=== PATIENT | female | born 1955 | race Caucasian/White ===

== ENCOUNTER 2020-09-05 20:06 | Emergency (ER) | payer MEDICARE ==
[~2020-09-05] VITALS: Ht 160 cm; Wt 50.0 kg
[2020-09-05 20:25] LABS: BASOPHILS % (AUTO) 0.3 % (0-1); EOSINOPHILS % (AUTO) 0.3 % (0-6); HEMATOCRIT 37.2 % (35.0-45.0); LYMPHOCYTES # (AUTO) 0.8 X10'3 (1.1-4.8); LYMPHOCYTES % (AUTO) 8.7 % (21-51); MEAN CORPUSCULAR HEMOGLOBIN 30.9 PG (27.0-31.0); MEAN CORPUSCULAR HGB CONC 35.1 g/dL (33.0-36.5); MEAN PLATELET VOLUME 9.1 FL (7.4-10.4); MONOCYTES # (AUTO) 0.5 X10'3 (0-0.9); MONOCYTES % (AUTO) 5.7 % (2-12); NEUTROPHILS # (AUTO) 7.8 X10'3 (1.8-7.7); PLATELET COUNT 217 X10'3 (140-440); RED BLOOD COUNT 4.22 X10'6 (4.20-5.60); RED CELL DISTRIBUTION WIDTH 12.5 % (11.5-14.5); WHITE BLOOD COUNT 9.1 X10'3 (4.5-11.0)
[2020-09-05 20:40] LABS: ALANINE AMINOTRANSFERASE 19 U/L (12-78); ALBUMIN 2.9 G/DL (3.4-5.0); ALBUMIN/GLOBULIN RATIO 0.8 (1.1-1.5); ALKALINE PHOSPHATASE 135 IU/L (46-116); ANION GAP 8 (8-16); ASPARTATE AMINO TRANSFERASE 17 U/L (10-37); BILIRUBIN,TOTAL 0.5 MG/DL (0.1-1.0); BLOOD UREA NITROGEN 11 MG/DL (7-18); BUN/CREATININE RATIO 19.3 (6.6-38.0); CALCIUM 8.6 MG/DL (8.5-10.1); CHLORIDE 101 MMOL/L (99-107); CREATININE 0.57 MG/DL (0.40-0.90); GLUCOSE 107 MG/DL (70-104); POTASSIUM 3.3 MMOL/L (3.5-5.1); SODIUM 133 MMOL/L (135-145); TOTAL CARBON DIOXIDE 23.8 MMOL/L (24-32); TOTAL PROTEIN 6.6 G/DL (6.4-8.2); eGFR > 90 ML/MIN
--- NOTE | 2020-09-05 21:03 | NUR ---
TO CT VIA [facility]
[2020-09-05 21:04] LABS: CLARITY,URINE CLEAR (Clear); COLOR,URINE YELLOW (Yellow); GLUCOSE, URINE NEGATIVE (Neg); KETONES,URINE NEGATIVE (Neg); LEUKOCYTE ESTERASE ,URINE NEGATIVE (Neg); NITRITES, URINE NEGATIVE (Neg); OCCULT BLOOD,URINE MODERATE (Neg); PH,URINE 6.5 (4.8-8.0); PROTEIN,URINE NEGATIVE (Neg)
[2020-09-05 21:10] LABS: UA COLLECTION TYPE CLN CATCH MIDSTREAM
[2020-09-05 21:28] LABS: MUCUS STRANDS FEW /LPF (Neg); SQUAMOUS EPITHELIAL CELL,UR FEW /LPF (FEW)
[2020-09-05 21:29] LABS: BACTERIA,URINE FEW /HPF (Neg); CAL OXALATE CRYSTALS 2+ /HPF (NEGATIVE); WBC,URINE 0-4 /HPF (0-4)
[2020-09-05 22:51] VITALS: BP 151/80
--- NOTE | 2020-09-05 22:59 | NUR ---
SPOKE WITH FAMILY WHO EXPRESSED CONCERNS THAT PT IS BEING DISCHARGED. THEY ARE UPSET THAT WE HAVE NOT CONTACTED HER "PREVIOUS PHYSICIANS OR OTHER HOSPITALS" REGARDING HER ISSUES. THEY STATE THAT EVERYTIME SHE IS CHECKED OUT NO ONE CAN FIND ANYTHING WRONG BUT SHE HAS TO GO BACK WITH OTHER ISSUES THE NEXT DAY. I ADVISED THE FAMILY THAT AT THIS TIME THERE IS NO INDICATION TO KEEP HER IN THE HOSPITAL AND THAT SHOULD ANYTHING CHANGE ONCE SHE IS HOME THEY ARE MORE THAN WELCOME TO BRING HER BACK IN FOR A RE-EVAL.
== END 2020-09-05 23:36 | disposition home or self-care (01) ==
LOC: EDBD 20:06 → ER 20:06
DX: R10.84 Generalized abdominal pain (principal); R30.0 Dysuria; R53.1 Weakness; E11.9 Type 2 diabetes mellitus without complications; G89.29 Other chronic pain; Z86.73 Personal history of transient ischemic attack (TIA), and cerebral infarction without residual deficits; Z86.69 Personal history of other diseases of the nervous system and sense organs
CPT/HCPCS: 36415; 74176; 80053; 81001; 83605; 84145; 85025; 87040; 99284

== ENCOUNTER 2021-02-13 14:02 | Inpatient (IN) | payer MEDICARE, OTHER ==
[~2021-02-13] VITALS: Ht 160 cm; Wt 58.0 kg
[2021-02-13 15:26] LABS: BASOPHILS % (AUTO) 0.3 % (0-1); EOSINOPHILS # (AUTO) 0.1 X10'3 (0-0.9); EOSINOPHILS % (AUTO) 1.8 % (0-6); HEMATOCRIT 36.5 % (35.0-45.0); HEMOGLOBIN 12.1 g/dl (12.0-16.0); LYMPHOCYTES # (AUTO) 1.1 X10'3 (1.1-4.8); LYMPHOCYTES % (AUTO) 25.1 % (21-51); MEAN CORPUSCULAR HEMOGLOBIN 29.5 PG (27.0-31.0); MEAN CORPUSCULAR HGB CONC 33.2 g/dL (33.0-36.5); MEAN CORPUSCULAR VOLUME 88.7 FL (78-98); MEAN PLATELET VOLUME 11.2 FL (7.4-10.4); MONOCYTES # (AUTO) 0.5 X10'3 (0-0.9); MONOCYTES % (AUTO) 11.5 % (2-12); NEUTROPHILS # (AUTO) 2.6 X10'3 (1.8-7.7); NEUTROPHILS % (AUTO) 61.3 % (42-75); PLATELET COUNT 138 X10'3 (140-440); RED BLOOD COUNT 4.12 X10'6 (4.20-5.60); RED CELL DISTRIBUTION WIDTH 13.1 % (11.5-14.5); WHITE BLOOD COUNT 4.3 X10'3 (4.5-11.0)
[2021-02-13 15:39] LABS: CHLORIDE 108 MMOL/L (99-107); POTASSIUM 3.9 MMOL/L (3.5-5.1); SODIUM 143 MMOL/L (135-145)
[2021-02-13 15:56] LABS: ALBUMIN 3.2 G/DL (3.4-5.0); ALBUMIN/GLOBULIN RATIO 0.9 (1.1-1.5); ALKALINE PHOSPHATASE 124 IU/L (46-116); ANION GAP 12 (8-16); ASPARTATE AMINO TRANSFERASE 20 U/L (10-37); BILIRUBIN,TOTAL 0.7 MG/DL (0.1-1.0); BLOOD UREA NITROGEN 13 MG/DL (7-18); BUN/CREATININE RATIO 25.5 (6.6-38.0); CALCIUM 8.5 MG/DL (8.5-10.1); CREATININE 0.51 MG/DL (0.40-0.90); GLUCOSE 161 MG/DL (70-104); TOTAL CARBON DIOXIDE 22.9 MMOL/L (24-32); TOTAL PROTEIN 6.6 G/DL (6.4-8.2); eGFR > 90 ML/MIN
[2021-02-13 17:55] LABS: ALANINE AMINOTRANSFERASE 22 U/L (12-78)
--- NOTE | 2021-02-13 22:05 | NUR ---
pt ambulated to bathroom using walker- oxygen saturation dropped to 85%. clean catch urine specimen collected and sent. pt now resting in stretcher, even and unlabored respirations
[2021-02-13 22:42] LABS: D-DIMER 2.84 MG/L FEU (0-0.50)
[2021-02-13] MEDS ORDERED: iohexol 350MG/ML 100ml bottle IV ONE (23:03)
[2021-02-13] MEDS ORDERED: furosemide 10 MG/1 ML 10ml inj IV ONE (23:20)
--- NOTE | 2021-02-14 00:31 | NUR ---
PT ASSISTED TO BATHROOM WITH WHEELCHAIR- TOLERATED WELL, MAINTAINED ON 2L OXYGEN.
[2021-02-14] MEDS ORDERED: magnesium hydroxide 30ml (MOM) UD suspension PO PRN (01:20)
[2021-02-14] MEDS ORDERED: ondansetron/PF 4mg/2ml inj IV PRN (01:20)
[2021-02-14] MEDS ORDERED: acetaminophen 325mg tablet PO PRN (01:20)
[2021-02-14] MEDS ORDERED: mag hydrox/Alum hydrox/simeth 30ml oral suspension PO PRN (01:20)
[2021-02-14] MEDS ORDERED: potassium Cl 40MEQ/1/2NS 520ml 520 ML IV PRN ×2 (01:20)
[2021-02-14] MEDS ORDERED: potassium Cl 20 mEq SR tablet PO PRN (01:20)
[2021-02-14] MEDS ORDERED: HYDROcodone/acetaminophen 10/325mg tab PO ONE (02:20)
[2021-02-14] MEDS ORDERED: CYAN100T9 PO (02:24)
[2021-02-14] MEDS ORDERED: MORP-92 PO (02:24)
[2021-02-14] MEDS ORDERED: FLUD0.1T PO (02:24)
[2021-02-14] MEDS ORDERED: INSU100V9 SQ (02:24)
[2021-02-14] MEDS ORDERED: PREG100C PO (02:24)
[2021-02-14] MEDS ORDERED: KEP500T PO (02:24)
[2021-02-14] MEDS ORDERED: PANT-47 PO (02:24)
[2021-02-14] MEDS ORDERED: TIZA4CAP PO (02:24)
[2021-02-14] MEDS ORDERED: GABA300C PO (02:24)
[2021-02-14] MEDS ORDERED: ASPI-100 PO (02:24)
[2021-02-14] MEDS ORDERED: POLY17PO59 PO (02:24)
[2021-02-14] MEDS ORDERED: DULO60CA65 PO (02:24)
[2021-02-14] MEDS ORDERED: HYDR-3972 PO (02:24)
[2021-02-14] MEDS ORDERED: MELO15TA13 PO (02:24)
--- NOTE | 2021-02-14 02:55 | NUR ---
REPORT GIVEN TO ANGEL PRATT FOR PATIENT ADMISSION TO FLOOR. PT JUST ASSISTED TO BEDSIDE COMMODE- TOLERATED WELL. PT WAS ALSO GIVEN DOSE OF NORCO- SWALLOWED WITHOUT DIFFICULTY.
[2021-02-14] MEDS: pregabalin 75mg capsule PO SCH ×3 (03:46→20:21)
[2021-02-14] MEDS: gabapentin 300mg capsule PO SCH ×3 (03:46→20:21)
[2021-02-14] MEDS: pregabalin 25mg capsule PO SCH ×3 (03:46→20:21)
[2021-02-14] MEDS: tizanidine 4mg tablet PO SCH ×2 (03:47→20:21)
[2021-02-14 04:00] VITALS: BP 179/84
[2021-02-14 04:51] LABS: HEMOGLOBIN A1C 5.6 % (4.5-6.2)
--- NOTE | 2021-02-14 06:10 | NUR ---
Patient in room [facility] 356. I have received report from SANTA Joyce and had the opportunity to ask questions and assume patient care.
--- NOTE | 2021-02-14 06:27 | NUR ---
Problems reprioritized. Patient report given, questions answered & plan of care reviewed with Gracie RN.
[2021-02-14 06:30] VITALS: BP 178/79
[2021-02-14 07:16] LABS: PARTIAL THROMBOPLASTIN TIME 30 SECONDS (22-32)
[2021-02-14 07:30] LABS: ALBUMIN 3.1 G/DL (3.4-5.0); ANION GAP 14 (8-16); BLOOD UREA NITROGEN 11 MG/DL (7-18); BUN/CREATININE RATIO 23.9 (6.6-38.0); CALCIUM 8.8 MG/DL (8.5-10.1); CHLORIDE 105 MMOL/L (99-107); CREATININE 0.46 MG/DL (0.40-0.90); GLUCOSE 120 MG/DL (70-104); POTASSIUM 3.5 MMOL/L (3.5-5.1); SODIUM 143 MMOL/L (135-145); TOTAL CARBON DIOXIDE 24.3 MMOL/L (24-32); eGFR > 90 ML/MIN
[2021-02-14] MEDS: polyethylene glycol 3350 17gm powd pack PO SCH (07:44)
[2021-02-14] MEDS: aspirin 325mg tablet, delayed-release (Ecotrin) PO SCH (07:45)
[2021-02-14] MEDS: pantoprazole 40mg Tablet.DR PO SCH (07:47)
[2021-02-14] MEDS: levetiracetam 250mg tablet PO SCH ×2 (07:47→20:21)
[2021-02-14] MEDS: duloxetine 30mg CAPSULE.DR PO SCH (07:47)
[2021-02-14] MEDS: morphine ER 30mg tablet PO SCH ×2 (07:48→20:21)
[2021-02-14] MEDS: K and/or MAG REPLACEMENT MC SCH ×2 (07:48→20:00)
[2021-02-14] MEDS ORDERED: non-formulary drug (Pregabalin (Lyrica) 1 CAP) PO SCH (08:00)
[2021-02-14] MEDS ORDERED: fludrocortisone acetate 0.1mg tablet PO SCH (08:00)
[2021-02-14] MEDS ORDERED: morphine ER 15mg tablet PO SCH (08:00)
[2021-02-14] MEDS: furosemide 40mg/4ml inj IV SCH ×2 (08:46→20:24)
[2021-02-14 09:01] LABS: BASOPHILS % (AUTO) 0.3 % (0-1); EOSINOPHILS # (AUTO) 0.1 X10'3 (0-0.9); EOSINOPHILS % (AUTO) 2.5 % (0-6); HEMATOCRIT 36.2 % (35.0-45.0); HEMOGLOBIN 12.1 g/dl (12.0-16.0); LYMPHOCYTES # (AUTO) 0.9 X10'3 (1.1-4.8); LYMPHOCYTES % (AUTO) 23.7 % (21-51); MEAN CORPUSCULAR HEMOGLOBIN 29.3 PG (27.0-31.0); MEAN CORPUSCULAR HGB CONC 33.4 g/dL (33.0-36.5); MEAN CORPUSCULAR VOLUME 87.7 FL (78-98); MEAN PLATELET VOLUME 11.1 FL (7.4-10.4); MONOCYTES # (AUTO) 0.5 X10'3 (0-0.9); NEUTROPHILS # (AUTO) 2.5 X10'3 (1.8-7.7); NEUTROPHILS % (AUTO) 61.5 % (42-75); PLATELET COUNT 134 X10'3 (140-440); RED BLOOD COUNT 4.13 X10'6 (4.20-5.60); RED CELL DISTRIBUTION WIDTH 12.9 % (11.5-14.5)
--- NOTE | 2021-02-14 09:19 | NUR ---
DM consult: Pt with A1c 5.6%, DM education not warranted at this time. Will continue to follow. Addendum: 02/14/21 at [address] Amended: Links added.
[2021-02-14 11:00] VITALS: BP 138/65
[2021-02-14] MEDS: HYDROcodone/acetaminophen 10/325mg tab PO SCH ×2 (12:11→23:32)
[2021-02-14 13:30] VITALS: BP 147/61
[2021-02-14 13:47] VITALS: BP 97/45
[2021-02-14] MEDS: insulin glargine (Lantus) pen - multi-dose SQ SCH (13:58)
[2021-02-14 14:34] LABS: BFSOURCE RIGHT PLEURAL FLD; PLEURAL FLUID PH 7.475 (7.63-7.65)
[2021-02-14 14:42] LABS: GLUCOSE,BODY FLUID 155 MG/DL; LDH,BODY FLUID 73 U/L; TOTAL PROTEIN,BODY FLUID 2.1 G/DL
[2021-02-14 14:47] LABS: BF RBC COUNT 399 /CU MM; BF WBC COUNT 500 /CU MM (0-1000); BFAPPEAR HAZY; BFCOLOR YELLOW; BFVOLUME 49 ML
[2021-02-14 14:48] LABS: BF MESOTHELIAL CELLS FEW; LYMPHOCYTES,BODY FLUID 76 %; MONOCYTES,BODY FLUID 22 %; NEUTROPHILS,BODY FLUID 2 %
[2021-02-14 17:59] LABS: ABG BASE EXCESS 3.6 mmol/L (-2.0-2.0); ABG HCO3 28.2 mmol/L (22.0-26.0); ABG OXYGEN SATURATION 93.8 % (94-97); ABG PCO2 (T) 42.7 mmHg (32.0-45.0); ABG PO2 (T) 71.3 mmHg (75.0-100.0); ALLEN'S TEST POSITIVE; FCOHb 1.4 % (0.0-3.9); FO2Hb 92.5 % (94-97); TOTAL HEMOGLOBIN 11.6 G/dl (12.0-16.0)
[2021-02-14 18:00] VITALS: BP 146/70
--- NOTE | 2021-02-14 18:30 | NUR ---
Patient in room [facility] 356. I have received report from Gracie PRATT and had the opportunity to ask questions and assume patient care.
--- NOTE | 2021-02-14 18:30 | NUR ---
Problems reprioritized. Patient report given, questions answered & plan of care reviewed with SANTA Joyce.
[2021-02-14] MEDS ORDERED: MELOXICAM 15 MG PO SCH (21:00)
[2021-02-15] VITALS: BP 132/62
--- NOTE | 2021-02-15 06:25 | NUR ---
Patient in room [facility] 356. I have received report from SANTA Joyce and had the opportunity to ask questions and assume patient care.
--- NOTE | 2021-02-15 06:38 | NUR ---
Problems reprioritized. Patient report given, questions answered & plan of care reviewed with Gracie RN.
[2021-02-15 06:54] LABS: BASOPHILS % (AUTO) 0.4 % (0-1); EOSINOPHILS # (AUTO) 0.1 X10'3 (0-0.9); EOSINOPHILS % (AUTO) 3.3 % (0-6); HEMATOCRIT 33.9 % (35.0-45.0); HEMOGLOBIN 11.7 g/dl (12.0-16.0); LYMPHOCYTES # (AUTO) 1.2 X10'3 (1.1-4.8); LYMPHOCYTES % (AUTO) 30.9 % (21-51); MEAN CORPUSCULAR HEMOGLOBIN 29.6 PG (27.0-31.0); MEAN CORPUSCULAR HGB CONC 34.5 g/dL (33.0-36.5); MEAN CORPUSCULAR VOLUME 85.7 FL (78-98); MEAN PLATELET VOLUME 11.2 FL (7.4-10.4); MONOCYTES # (AUTO) 0.5 X10'3 (0-0.9); MONOCYTES % (AUTO) 13.5 % (2-12); NEUTROPHILS % (AUTO) 51.9 % (42-75); PLATELET COUNT 140 X10'3 (140-440); RED BLOOD COUNT 3.95 X10'6 (4.20-5.60); RED CELL DISTRIBUTION WIDTH 12.7 % (11.5-14.5); WHITE BLOOD COUNT 3.9 X10'3 (4.5-11.0)
[2021-02-15 06:56] LABS: ALANINE AMINOTRANSFERASE 17 U/L (12-78); ALBUMIN 2.8 G/DL (3.4-5.0); ALBUMIN/GLOBULIN RATIO 0.9 (1.1-1.5); ALKALINE PHOSPHATASE 110 IU/L (46-116); ANION GAP 11 (8-16); ASPARTATE AMINO TRANSFERASE 15 U/L (10-37); BILIRUBIN,TOTAL 0.6 MG/DL (0.1-1.0); BLOOD UREA NITROGEN 12 MG/DL (7-18); CALCIUM 8.3 MG/DL (8.5-10.1); CHLORIDE 106 MMOL/L (99-107); CREATININE 0.48 MG/DL (0.40-0.90); GLUCOSE 119 MG/DL (70-104); SODIUM 145 MMOL/L (135-145); TOTAL CARBON DIOXIDE 28.4 MMOL/L (24-32); eGFR > 90 ML/MIN
[2021-02-15 07:00] VITALS: BP 151/64
[2021-02-15] MEDS: K and/or MAG REPLACEMENT MC SCH (07:14)
[2021-02-15 07:19] LABS: LARGE PLATELETS FEW; MICROCYTOSIS 1+; PLATELET ESTIMATE DECREASED
[2021-02-15] MEDS ORDERED: lisinopril 10 MG tablet PO SCH (08:00)
[2021-02-15] MEDS: morphine ER 30mg tablet PO SCH (09:17)
[2021-02-15] MEDS: gabapentin 300mg capsule PO SCH ×2 (09:17→12:25)
[2021-02-15] MEDS: aspirin 325mg tablet, delayed-release (Ecotrin) PO SCH (09:17)
[2021-02-15] MEDS: duloxetine 30mg CAPSULE.DR PO SCH (09:17)
[2021-02-15] MEDS: pantoprazole 40mg Tablet.DR PO SCH (09:18)
[2021-02-15] MEDS: levetiracetam 250mg tablet PO SCH (09:18)
[2021-02-15] MEDS: pregabalin 25mg capsule PO SCH ×2 (09:18→12:25)
[2021-02-15] MEDS: furosemide 40mg/4ml inj IV SCH (09:18)
[2021-02-15] MEDS: tizanidine 4mg tablet PO SCH (09:18)
[2021-02-15] MEDS: pregabalin 75mg capsule PO SCH ×2 (09:18→12:25)
[2021-02-15] MEDS: polyethylene glycol 3350 17gm powd pack PO SCH (09:19)
[2021-02-15] MEDS: potassium Cl 20 mEq SR tablet PO PRN ×2 (09:24→14:40)
[2021-02-15 11:00] VITALS: BP 126/49
[2021-02-15] MEDS: HYDROcodone/acetaminophen 10/325mg tab PO SCH (12:26)
[2021-02-15] MEDS ORDERED: LISI10TA27 PO (14:18)
[2021-02-15] MEDS ORDERED: FURO20TA4 PO (14:18)
[2021-02-15] MEDS: insulin glargine (Lantus) pen - multi-dose SQ SCH (14:24)
[2021-02-15] MEDS ORDERED: POTA20TA10 PO (15:17)
--- NOTE | 2021-02-15 16:25 | NUR ---
DC inst provided to pt & pt's daughter. IV DC'd, tip intact. All belongings sent w/pt. WC to vehicle.
--- NOTE | 2021-02-18 15:14 | NUR ---
CASE MANAGEMENT DISCHARGE FOLLOW UP: Spoke with pt via telephone. Reports that she is doing okay, having some nausea that started today; denies CP, SOB, edema, dizziness, emesis/diarrhea. Verbalizes understanding of s/sx requiring further evaluation/emergent assistance. Verbalizes understanding of medications, saw her PCP today who instructed her to continue taking Florinef, Lantus, and meloxicam in addition to new medications. She says that PCP did not send referral yet to industrial machine operator, but that she will. States no further questions/concerns at this time.
== END 2021-02-15 16:34 | disposition home or self-care (01) | DRG 293 ==
LOC: ER 14:03 → ED HOLD 02-14 01:18 → SUR 3N 02-14 03:14
PROVIDERS: ADMIT Internal Medicine; ATTEND Internal Medicine
PROC: B32T1ZZ Computerized Tomography (CT Scan) of Left Pulmonary Artery using Low Osmolar Contrast (ICD-10-PCS; principal; 2021-02-13)
PROC: B3201ZZ Computerized Tomography (CT Scan) of Thoracic Aorta using Low Osmolar Contrast (ICD-10-PCS; 2021-02-13)
PROC: B32S1ZZ Computerized Tomography (CT Scan) of Right Pulmonary Artery using Low Osmolar Contrast (ICD-10-PCS; 2021-02-13)
PROC: 0W9B3ZZ Drainage of Left Pleural Cavity, Percutaneous Approach (ICD-10-PCS; 2021-02-14)
PROC: 0W993ZZ Drainage of Right Pleural Cavity, Percutaneous Approach (ICD-10-PCS; 2021-02-14)
DX: I50.31 Acute diastolic (congestive) heart failure (principal); D69.6 Thrombocytopenia, unspecified; E11.41 Type 2 diabetes mellitus with diabetic mononeuropathy; E11.43 Type 2 diabetes mellitus with diabetic autonomic (poly)neuropathy; G60.9 Hereditary and idiopathic neuropathy, unspecified; N28.9 Disorder of kidney and ureter, unspecified; R29.6 Repeated falls; G89.4 Chronic pain syndrome; Z86.73 Personal history of transient ischemic attack (TIA), and cerebral infarction without residual deficits; Z90.49 Acquired absence of other specified parts of digestive tract; Z87.891 Personal history of nicotine dependence; Z88.5 Allergy status to narcotic agent; Z79.899 Other long term (current) drug therapy
CPT/HCPCS: 32555; 36415; 36600; 71045; 71046; 71275; 80048; 80053; 82803; 82945; 82948; 83036; 83615; 83880; 83986; 84157; 84460; 84484; 85008; 85018; 85025; 85379; 85610; 85730; 87070; 87081; 89051; 93005; 93306; 99285; G0378; J1815; J1940; Q9967

== ENCOUNTER 2022-11-21 17:18 | Emergency (ER) | payer MEDICARE, OTHER ==
[~2022-11-21] VITALS: Ht 160 cm; Wt 81.8 kg
[~2022-11-21 17:18] MED LIST: ASPI-100 PO; CYAN100T9 PO; DULO60CA65 PO; FURO20TA4 PO; GABA300C PO; HYDR-3972 PO; KEP500T PO; LISI10TA27 PO; MORP-92 PO; PANT-47 PO; POLY17PO59 PO; POTA-197 PO; PREG100C PO; TIZA4CAP PO
[2022-11-21 22:50] LABS: BASOPHILS % (AUTO) 0.2 % (0-1); EOSINOPHILS # (AUTO) 0.2 X10'3 (0-0.9); EOSINOPHILS % (AUTO) 2.6 % (0-6); HEMATOCRIT 34.8 % (35.0-45.0); HEMOGLOBIN 11.4 g/dl (12.0-16.0); LYMPHOCYTES # (AUTO) 1.7 X10'3 (1.1-4.8); LYMPHOCYTES % (AUTO) 20.1 % (21-51); MEAN CORPUSCULAR HEMOGLOBIN 28.2 PG (27.0-31.0); MEAN CORPUSCULAR HGB CONC 32.6 g/dL (33.0-36.5); MEAN CORPUSCULAR VOLUME 86.6 FL (78-98); MEAN PLATELET VOLUME 10.4 FL (7.4-10.4); MONOCYTES # (AUTO) 0.9 X10'3 (0-0.9); MONOCYTES % (AUTO) 11.2 % (2-12); NEUTROPHILS # (AUTO) 5.6 X10'3 (1.8-7.7); NEUTROPHILS % (AUTO) 65.9 % (42-75); PLATELET COUNT 193 X10'3 (140-440); RED BLOOD COUNT 4.02 X10'6 (4.20-5.60); RED CELL DISTRIBUTION WIDTH 13.8 % (11.5-14.5); WHITE BLOOD COUNT 8.4 X10'3 (4.5-11.0)
[2022-11-21 23:03] LABS: ALANINE AMINOTRANSFERASE 23 U/L (12-78); ALBUMIN 3.8 G/DL (3.4-5.0); ALBUMIN/GLOBULIN RATIO 0.8 (1.1-1.5); ALKALINE PHOSPHATASE 105 IU/L (46-116); ANION GAP 10 (8-16); ASPARTATE AMINO TRANSFERASE 21 U/L (10-37); BILIRUBIN,TOTAL 0.4 MG/DL (0.1-1.0); BLOOD UREA NITROGEN 21 MG/DL (7-18); BUN/CREATININE RATIO 23.9 (6.6-38.0); CALCIUM 9.5 MG/DL (8.5-10.1); CHLORIDE 104 MMOL/L (99-107); CREATININE 0.88 MG/DL (0.40-0.90); GLUCOSE 127 MG/DL (70-104); POTASSIUM 4.4 MMOL/L (3.5-5.1); SODIUM 138 MMOL/L (135-145); TOTAL CARBON DIOXIDE 24.1 MMOL/L (24-32); TOTAL PROTEIN 8.6 G/DL (6.4-8.2); eGFR 64 ML/MIN
[2022-11-21] MEDS ORDERED: vancomycin/NS 1 GM ADD-VANTAGE 250 ML IV ONE (23:50)
[2022-11-22 00:17] LABS: CLARITY,URINE CLEAR (Clear); COLOR,URINE YELLOW (Yellow); GLUCOSE, URINE NEGATIVE (Neg); KETONES,URINE NEGATIVE (Neg); LEUKOCYTE ESTERASE ,URINE TRACE (Neg); NITRITES, URINE NEGATIVE (Neg); OCCULT BLOOD,URINE NEGATIVE (Neg); PH,URINE 5.5 (4.8-8.0); PROTEIN,URINE NEGATIVE (Neg); UA COLLECTION TYPE NON-SPECIFIED; UROBILINOGEN,URINE 0.2 E.U/dL (0.2-1.0)
[2022-11-22 00:24] LABS: HYALINE CASTS >30 /LPF (NEGATIVE)
[2022-11-22] MEDS ORDERED: HYDROcodone/acetaminophen 10/325mg tab PO ONE (00:25)
[2022-11-22 00:30] LABS: BACTERIA,URINE NONE SEEN /HPF (Neg); MUCUS STRANDS MANY /LPF (Neg); RBC,URINE NONE SEEN /HPF (0-2); SQUAMOUS EPITHELIAL CELL,UR FEW /LPF (FEW)
[2022-11-22] MEDS ORDERED: DOXY100C76 PO ×2 (01:20→01:48)
[2022-11-22 01:27] VITALS: BP 113/68
== END 2022-11-22 03:04 | disposition home or self-care (01) ==
LOC: ER 17:19
DX: L03.116 Cellulitis of left lower limb (principal); I11.0 Hypertensive heart disease with heart failure; I50.9 Heart failure, unspecified; K21.9 Gastro-esophageal reflux disease without esophagitis; E11.9 Type 2 diabetes mellitus without complications; G89.29 Other chronic pain; Z86.2 Personal history of diseases of the blood and blood-forming organs and certain disorders involving the immune mechanism; Z88.5 Allergy status to narcotic agent; Z79.899 Other long term (current) drug therapy
CPT/HCPCS: 36415; 71045; 73630; 80053; 81001; 83605; 85025; 87040; 87088; 96365; 96366; 99284; J3370

== ENCOUNTER 2023-01-22 11:48 | Inpatient (IN) | payer MEDICARE, OTHER ==
[~2023-01-22] VITALS: Ht 160 cm; Wt 72.1 kg
[2023-01-22] MEDS ORDERED: ondansetron/PF 4mg/2ml inj IV ONE (12:40)
[2023-01-22] MEDS ORDERED: normal saline 1000ML IV soln IVB ONE (12:40)
[2023-01-22 12:59] LABS: BASOPHILS % (AUTO) 0.5 % (0-1); EOSINOPHILS # (AUTO) 0.3 X10'3 (0-0.9); EOSINOPHILS % (AUTO) 3.6 % (0-6); HEMATOCRIT 29.4 % (35.0-45.0); HEMOGLOBIN 9.6 g/dl (12.0-16.0); LYMPHOCYTES # (AUTO) 0.9 X10'3 (1.1-4.8); LYMPHOCYTES % (AUTO) 11.5 % (21-51); MEAN CORPUSCULAR HEMOGLOBIN 27.9 PG (27.0-31.0); MEAN CORPUSCULAR HGB CONC 32.7 g/dL (33.0-36.5); MEAN CORPUSCULAR VOLUME 85.2 FL (78-98); MEAN PLATELET VOLUME 9.7 FL (7.4-10.4); MONOCYTES # (AUTO) 0.6 X10'3 (0-0.9); MONOCYTES % (AUTO) 8.4 % (2-12); NEUTROPHILS # (AUTO) 5.7 X10'3 (1.8-7.7); PLATELET COUNT 236 X10'3 (140-440); RED BLOOD COUNT 3.46 X10'6 (4.20-5.60); RED CELL DISTRIBUTION WIDTH 17.5 % (11.5-14.5); WHITE BLOOD COUNT 7.5 X10'3 (4.5-11.0)
[2023-01-22] MEDS: morphine 4 MG/ML inj SYRINge IV PRN ×2 (13:06→15:36)
[2023-01-22 13:15] LABS: ALANINE AMINOTRANSFERASE 15 U/L (12-78); ALBUMIN 2.9 G/DL (3.4-5.0); ALBUMIN/GLOBULIN RATIO 0.6 (1.1-1.5); ALKALINE PHOSPHATASE 123 IU/L (46-116); ANION GAP 9 (8-16); ASPARTATE AMINO TRANSFERASE 18 U/L (10-37); BILIRUBIN,TOTAL 0.3 MG/DL (0.1-1.0); BLOOD UREA NITROGEN 15 MG/DL (7-18); BUN/CREATININE RATIO 19.2 (10.0-20.0); CALCIUM 9.5 MG/DL (8.5-10.1); CHLORIDE 104 MMOL/L (99-107); CREATININE 0.78 MG/DL (0.40-0.90); GLUCOSE 208 MG/DL (70-104); LIPASE < 50 U/L (73-393); POTASSIUM 4.7 MMOL/L (3.5-5.1); SODIUM 137 MMOL/L (135-145); TOTAL CARBON DIOXIDE 23.9 MMOL/L (24-32); TOTAL PROTEIN 7.7 G/DL (6.4-8.2); eGFR 73 ML/MIN
[2023-01-22] MEDS ORDERED: HYDROcodone/acetaminophen 10/325mg tab PO ONE (14:20)
[2023-01-22] MEDS ORDERED: HYDR-3973 PO (14:42)
[2023-01-22] MEDS ORDERED: morphine 4 MG/ML inj SYRINge IV ONE ×2 (16:55→19:35)
[2023-01-22 22:11] LABS: CLARITY,URINE CLEAR (Clear); COLOR,URINE YELLOW (Yellow); GLUCOSE, URINE NEGATIVE (Neg); KETONES,URINE NEGATIVE (Neg); LEUKOCYTE ESTERASE ,URINE SMALL (Neg); NITRITES, URINE NEGATIVE (Neg); OCCULT BLOOD,URINE NEGATIVE (Neg); PROTEIN,URINE NEGATIVE (Neg); UROBILINOGEN,URINE 0.2 E.U/dL (0.2-1.0)
[2023-01-22 22:33] LABS: UA COLLECTION TYPE CLN CATCH MIDSTREAM
[2023-01-22 22:34] LABS: BACTERIA,URINE FEW /HPF (Neg); RBC,URINE NONE SEEN /HPF (0-2); SQUAMOUS EPITHELIAL CELL,UR FEW /LPF (FEW); TRANSITIONAL EPI CELLS,URINE FEW /HPF; WBC CLUMPS,URINE MODERATE /HPF (NEGATIVE)
[2023-01-22 23:01] LABS: C-REACTIVE PROTEIN 2.61 MG/DL (0.0-0.5)
[2023-01-22] MEDS ORDERED: HYDROmorphone 1 mg/ml syringe IV ONE (23:55)
[2023-01-22] MEDS ORDERED: vancomycin/NS 1 GM ADD-VANTAGE 250 ML IV ONE (23:55)
[2023-01-22] MEDS ORDERED: piperacillin/tazo 3.375gm/50ml 50 ML IV ONE (23:55)
[2023-01-23] MEDS ORDERED: acetaminophen 325mg tablet PO PRN ×2 (01:15)
[2023-01-23] MEDS ORDERED: mag hydrox/Alum hydrox/simeth 30ml oral suspension PO PRN (01:15)
[2023-01-23] MEDS ORDERED: acetaminophen 650mg rectal suppository RC PRN (01:15)
[2023-01-23] MEDS ORDERED: diphenhydrAMINE 25mg capsule PO PRN (01:15)
[2023-01-23] MEDS ORDERED: ondansetron/PF 4mg/2ml inj IV PRN (01:15)
[2023-01-23] MEDS ORDERED: bisacodyl 10mg suppository rectal RC PRN (01:15)
[2023-01-23] MEDS ORDERED: HYDROcodone/acetaminophen 5mg/325mg tablet PO PRN ×2 (01:15→17:40)
[2023-01-23] MEDS ORDERED: ondansetron 4mg rapidly disintigrating tab PO PRN (01:15)
[2023-01-23] MEDS ORDERED: diphenhydrAMINE 50 mg/ml inj IV PRN (01:15)
[2023-01-23] MEDS ORDERED: DEXTROSE 15 GM of carb/4 tabs (each vial/BOTTLE has 4 tablets) PO PRN ×2 (01:25)
[2023-01-23] MEDS ORDERED: insulin Lispro (HumaLOG) vial - multi-dose SQ SCH (01:25)
[2023-01-23] MEDS ORDERED: dextrose 50%-water 50ml dispensing syringe IV PRN ×2 (01:25)
[2023-01-23] MEDS ORDERED: glucagon, human recombinant 1mg kit SUBCUT PRN (01:25)
[2023-01-23] MEDS ORDERED: MESSAGE TO PHARMACY PO ONE (01:25)
[2023-01-23] MEDS ORDERED: piperacillin/tazo 3.375gm/50ml 50 ML IV STA (02:41)
[2023-01-23] MEDS: HYDROmorphone inj. 0.5 MG/0.5 ML DISP.SYRIN IV PRN ×5 (02:49→22:09)
[2023-01-23 03:00] VITALS: BP 126/86
[2023-01-23 03:09] LABS: MAGNESIUM 1.5 MG/DL (1.5-2.4); PHOSPHORUS 4.3 MG/DL (2.3-4.5)
[2023-01-23 03:33] LABS: HEMOGLOBIN A1C 7.2 % (4.5-6.2)
[2023-01-23] MEDS: normal saline 1000ml 1,000 ML IV SCH ×3 (03:48→20:59)
--- NOTE | 2023-01-23 04:20 | NUR ---
Pt arrived to PCU in no acute distress via gurney. Assisted in transferring to bed. Oriented to bed, room, surroundings, and POC. Appears anxious about getting needs met. Education and reassurance offered regarding pt's concerns. Assisted to BSC to void w/1 person, 2 RN skin ckeck completed, and nasal swab obtained and sent.
[2023-01-23 04:21] LABS: APTT 28 SECONDS (22-32); D-DIMER 1.88 MG/L FEU (0-0.50)
[2023-01-23 05:53] LABS: HIV ANTIBODY 1&2 RAPID NON-REACTIVE (Neg)
--- NOTE | 2023-01-23 06:39 | NUR ---
Patient in room PCU 3009. I have received report from Helena PRATT and had the opportunity to ask questions and assume patient care.
[2023-01-23] MEDS: docusate sod 100mg capsule PO SCH ×2 (07:14→20:00)
--- NOTE | 2023-01-23 07:14 | NUR ---
Problems reprioritized. Patient report given, questions answered & plan of care reviewed with Jamie RN.
[2023-01-23] MEDS: heparin, porcine 5000 units/ml vial SQ SCH ×2 (07:20→20:54)
[2023-01-23 07:25] VITALS: BP 133/58
[2023-01-23] MEDS ORDERED: tizanidine 4mg tablet PO SCH (08:00)
[2023-01-23] MEDS ORDERED: iohexol 300mg/ml 100ml inj. ONE (10:26)
[2023-01-23] MEDS: HYDROcodone/acetaminophen 10/325mg tab PO PRN ×2 (10:43→20:53)
[2023-01-23] MEDS ORDERED: piperacillin/tazo 3.375gm/50ml 50 ML IV SCH (11:00)
[2023-01-23] MEDS ORDERED: GABA600T13 PO (11:03)
[2023-01-23] MEDS ORDERED: FURO-150 PO (11:03)
[2023-01-23] MEDS ORDERED: LISI10TA27 PO (11:03)
[2023-01-23] MEDS ORDERED: HYDR-3964 PO (11:03)
[2023-01-23] MEDS ORDERED: POTA-366 PO (11:07)
[2023-01-23] MEDS ORDERED: PREG225C7 PO (11:07)
[2023-01-23] MEDS ORDERED: TIZA-205 PO (11:07)
[2023-01-23] MEDS ORDERED: MELO-102 PO (11:09)
[2023-01-23] MEDS ORDERED: HYDR-4069 PO (11:09)
[2023-01-23] MEDS ORDERED: ATOR20TA66 PO (11:09)
[2023-01-23] MEDS ORDERED: PIOG45TA65 PO (11:09)
[2023-01-23] MEDS ORDERED: METF-900 PO (11:09)
[2023-01-23] MEDS ORDERED: SERT-433 PO (11:09)
[2023-01-23] MEDS ORDERED: ALLO100T PO (11:09)
[2023-01-23 12:10] VITALS: BP 159/72
--- NOTE | 2023-01-23 12:34 | NUR ---
Per EMR pt with T2DM, well controlled with A1c 7.2%. Written DM education with RD contact information placed in patient's chart. Will remain available. Addendum: 01/23/23 at [address] Amended: Links added.
[2023-01-23] MEDS: vancomycin/NS 1 GM ADD-VANTAGE 250 ML IV SCH (13:28)
[2023-01-23] MEDS ORDERED: CefTRIAXone 2gm/D5W 50ml BAG 50 ML IV ONE (14:20)
--- NOTE | 2023-01-23 14:27 | NUR ---
Patient has wound to the left foot, family is adamant about making sure that we do not lose ground on wound therapy so she is bringing in her own materials and states that she will dress the wound till an assessment and recommendations from out woundcare team on Wednesday.
[2023-01-23] MEDS ORDERED: ASPI-611 PO (15:09)
[2023-01-23 18:00] VITALS: BP 166/85
--- NOTE | 2023-01-23 18:30 | NUR ---
Problems reprioritized. Patient report given, questions answered & plan of care reviewed with Silvano PRATT.
--- NOTE | 2023-01-23 18:30 | NUR ---
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 Patient was added back on to her actos at this time. Patient is not to start back on metformin for 48hours starting at 1200 01/23 through 12 01/25. Patient is aware.
--- NOTE | 2023-01-23 18:35 | NUR ---
Patient in room PCU 3009. I have received report from MIKE PRATT and had the opportunity to ask questions and assume patient care.
[2023-01-23] MEDS: gabapentin 300mg capsule PO SCH (20:51)
[2023-01-23] MEDS: levetiracetam 250mg tablet PO SCH (20:51)
[2023-01-23] MEDS: cyclobenzaprine 10mg tablet PO SCH (20:52)
[2023-01-23] MEDS: insulin glargine (Lantus) pen - multi-dose SQ SCH (21:00)
[2023-01-23 22:00] VITALS: BP 167/76
[2023-01-24] MEDS: HYDROcodone/acetaminophen 10/325mg tab PO PRN ×4 (00:56→20:27)
[2023-01-24] MEDS: temazepam 15mg capsule PO PRN ×2 (01:02→23:22)
[2023-01-24] MEDS: vancomycin/NS 1 GM ADD-VANTAGE 250 ML IV SCH ×2 (01:03→13:18)
[2023-01-24 02:00] VITALS: BP 156/78
--- NOTE | 2023-01-24 06:10 | NUR ---
Problems reprioritized. Patient report given, questions answered & plan of care reviewed with MIKE RN.
--- NOTE | 2023-01-24 06:12 | NUR ---
Patient in room PCU 3009. I have received report from Silvano PRATT and had the opportunity to ask questions and assume patient care.
[2023-01-24 06:40] LABS: BASOPHILS % (AUTO) 0.3 % (0-1); EOSINOPHILS # (AUTO) 0.1 X10'3 (0-0.9); EOSINOPHILS % (AUTO) 2.3 % (0-6); HEMATOCRIT 27.9 % (35.0-45.0); HEMOGLOBIN 9.4 g/dl (12.0-16.0); LYMPHOCYTES # (AUTO) 0.7 X10'3 (1.1-4.8); LYMPHOCYTES % (AUTO) 10.6 % (21-51); MEAN CORPUSCULAR HEMOGLOBIN 28.2 PG (27.0-31.0); MEAN CORPUSCULAR HGB CONC 33.6 g/dL (33.0-36.5); MONOCYTES # (AUTO) 0.7 X10'3 (0-0.9); MONOCYTES % (AUTO) 10.2 % (2-12); NEUTROPHILS # (AUTO) 4.9 X10'3 (1.8-7.7); NEUTROPHILS % (AUTO) 76.6 % (42-75); PLATELET COUNT 198 X10'3 (140-440); RED BLOOD COUNT 3.33 X10'6 (4.20-5.60); RED CELL DISTRIBUTION WIDTH 17.7 % (11.5-14.5); WHITE BLOOD COUNT 6.4 X10'3 (4.5-11.0)
[2023-01-24 06:45] LABS: ALANINE AMINOTRANSFERASE 19 U/L (12-78); ALBUMIN 2.9 G/DL (3.4-5.0); ALBUMIN/GLOBULIN RATIO 0.6 (1.1-1.5); ALKALINE PHOSPHATASE 129 IU/L (46-116); ANION GAP 13 (8-16); ASPARTATE AMINO TRANSFERASE 23 U/L (10-37); BILIRUBIN,TOTAL 0.3 MG/DL (0.1-1.0); BLOOD UREA NITROGEN 4 MG/DL (7-18); BUN/CREATININE RATIO 7.3 (10.0-20.0); CALCIUM 9.4 MG/DL (8.5-10.1); CHLORIDE 104 MMOL/L (99-107); CHOL/HDL RATIO 2.4 (0.00-4.99); CHOLESTEROL 135 MG/DL (0-200); CREATININE 0.55 MG/DL (0.40-0.90); GLUCOSE 198 MG/DL (70-104); HDL CHOLESTEROL 56 MG/DL (35-60); LDL CHOLESTEROL 58 MG/DL (50-100); POTASSIUM 3.7 MMOL/L (3.5-5.1); SODIUM 140 MMOL/L (135-145); TOTAL CARBON DIOXIDE 23.2 MMOL/L (24-32); TOTAL PROTEIN 7.7 G/DL (6.4-8.2); TRIGLYCERIDES 106 MG/DL (20-135); eGFR > 90 ML/MIN
[2023-01-24 07:06] VITALS: BP 169/63
[2023-01-24] MEDS: duloxetine 30mg CAPSULE.DR PO SCH (09:06)
[2023-01-24] MEDS: pioglitazone 45mg tablet PO SCH (09:06)
[2023-01-24] MEDS: levetiracetam 250mg tablet PO SCH ×2 (09:06→20:26)
[2023-01-24] MEDS: MELOXICAM 7.5 MG TABLET PO SCH (09:07)
[2023-01-24] MEDS: atorvastatin 20mg tablet PO SCH (09:07)
[2023-01-24] MEDS: gabapentin 300mg capsule PO SCH ×3 (09:07→20:26)
[2023-01-24] MEDS: furosemide 20MG tablet PO SCH (09:07)
[2023-01-24] MEDS: pantoprazole 40mg Tablet.DR PO SCH (09:08)
[2023-01-24] MEDS: allopurinol 100mg tablet PO SCH (09:08)
[2023-01-24] MEDS: docusate sod 100mg capsule PO SCH ×2 (09:08→20:25)
[2023-01-24] MEDS: cyclobenzaprine 10mg tablet PO SCH ×3 (09:08→20:26)
[2023-01-24] MEDS: lisinopril 10 MG tablet PO SCH (09:12)
[2023-01-24] MEDS: heparin, porcine 5000 units/ml vial SQ SCH ×2 (09:13→20:27)
[2023-01-24] MEDS: sertraline 50mg tablet PO SCH (09:13)
[2023-01-24] MEDS: potassium chloride 10mEq ER tablet PO SCH (09:13)
[2023-01-24] MEDS: aspirin 81mg, enteric-coated 1 TAB TABLET.DR PO SCH (09:13)
[2023-01-24] MEDS: HYDROmorphone inj. 0.5 MG/0.5 ML DISP.SYRIN IV PRN ×3 (09:14→22:26)
[2023-01-24] MEDS: CefTRIAXone 2gm/D5W 50ml BAG 50 ML IV SCH (09:38)
[2023-01-24] MEDS: normal saline 1000ml 1,000 ML IV SCH ×2 (09:43→17:15)
[2023-01-24] MEDS ORDERED: magnesium Cl slow-release 64mg tablet PO PRN (11:55)
[2023-01-24] MEDS ORDERED: potassium Cl 40MEQ/1/2NS 520ml 520 ML IV PRN (11:55)
[2023-01-24] MEDS ORDERED: magnesium 2GM in 50ml NS 50 ML IV PRN (11:55)
[2023-01-24] MEDS ORDERED: magnesium 4gm in 100ml NS 100 ML IV PRN (11:55)
[2023-01-24] MEDS ORDERED: potassium Cl 20 mEq SR tablet PO PRN (11:55)
[2023-01-24] MEDS ORDERED: VANCOMYCIN LEVEL IV ONE (12:30)
[2023-01-24] MEDS ORDERED: HYDROmorphone 1 mg/ml syringe IV ONE (13:40)
[2023-01-24 18:00] VITALS: BP 184/87
--- NOTE | 2023-01-24 18:31 | NUR ---
Problems reprioritized. Patient report given, questions answered & plan of care reviewed with Efren PRATT.
[2023-01-24] MEDS: K and/or MAG REPLACEMENT MC SCH (20:00)
[2023-01-24] MEDS: insulin glargine (Lantus) pen - multi-dose SQ SCH (20:56)
[2023-01-25] MEDS: HYDROcodone/acetaminophen 10/325mg tab PO PRN ×4 (00:34→17:17)
[2023-01-25] MEDS: temazepam 15mg capsule PO PRN ×2 (00:42→22:38)
[2023-01-25] MEDS: vancomycin/NS 1 GM ADD-VANTAGE 250 ML IV SCH ×2 (01:41→14:15)
--- NOTE | 2023-01-25 01:41 | NUR ---
I agree with all of SUPPORT MERCHANDISER Efren Lacy's physical assessments on this Patient. Coleen Coffman RN
[2023-01-25 02:00] VITALS: BP 170/85
[2023-01-25] MEDS: HYDROmorphone inj. 0.5 MG/0.5 ML DISP.SYRIN IV PRN ×6 (04:01→23:22)
[2023-01-25] MEDS: normal saline 1000ml 1,000 ML IV SCH ×2 (05:45→13:15)
--- NOTE | 2023-01-25 06:13 | NUR ---
Patient in room PCU 3009. I have received report from Efren PRATT and had the opportunity to ask questions and assume patient care.
[2023-01-25 07:06] LABS: BASOPHILS % (AUTO) 0.4 % (0-1); EOSINOPHILS # (AUTO) 0.2 X10'3 (0-0.9); EOSINOPHILS % (AUTO) 4.5 % (0-6); HEMATOCRIT 29.6 % (35.0-45.0); HEMOGLOBIN 9.6 g/dl (12.0-16.0); LYMPHOCYTES # (AUTO) 0.9 X10'3 (1.1-4.8); LYMPHOCYTES % (AUTO) 17.1 % (21-51); MEAN CORPUSCULAR HGB CONC 32.6 g/dL (33.0-36.5); MONOCYTES # (AUTO) 0.6 X10'3 (0-0.9); MONOCYTES % (AUTO) 11.4 % (2-12); NEUTROPHILS # (AUTO) 3.5 X10'3 (1.8-7.7); NEUTROPHILS % (AUTO) 66.6 % (42-75); PLATELET COUNT 193 X10'3 (140-440); RED BLOOD COUNT 3.44 X10'6 (4.20-5.60); RED CELL DISTRIBUTION WIDTH 17.8 % (11.5-14.5); WHITE BLOOD COUNT 5.3 X10'3 (4.5-11.0)
[2023-01-25 07:13] VITALS: BP 193/76
[2023-01-25 07:13] LABS: ALANINE AMINOTRANSFERASE 15 U/L (12-78); ALBUMIN 2.7 G/DL (3.4-5.0); ALBUMIN/GLOBULIN RATIO 0.6 (1.1-1.5); ALKALINE PHOSPHATASE 130 IU/L (46-116); ANION GAP 14 (8-16); ASPARTATE AMINO TRANSFERASE 21 U/L (10-37); BILIRUBIN,TOTAL 0.3 MG/DL (0.1-1.0); BLOOD UREA NITROGEN 4 MG/DL (7-18); BUN/CREATININE RATIO 8.5 (10.0-20.0); CALCIUM 9.2 MG/DL (8.5-10.1); CHLORIDE 105 MMOL/L (99-107); CREATININE 0.47 MG/DL (0.40-0.90); GLUCOSE 156 MG/DL (70-104); MAGNESIUM 1.4 MG/DL (1.5-2.4); PHOSPHORUS 3.7 MG/DL (2.3-4.5); POTASSIUM 3.4 MMOL/L (3.5-5.1); SODIUM 140 MMOL/L (135-145); TOTAL CARBON DIOXIDE 20.7 MMOL/L (24-32); TOTAL PROTEIN 7.6 G/DL (6.4-8.2); eGFR > 90 ML/MIN
[2023-01-25] MEDS: CefTRIAXone 2gm/D5W 50ml BAG 50 ML IV SCH (07:35)
[2023-01-25] MEDS: pioglitazone 45mg tablet PO SCH (07:38)
[2023-01-25] MEDS: potassium chloride 10mEq ER tablet PO SCH (07:39)
[2023-01-25] MEDS: allopurinol 100mg tablet PO SCH (07:40)
[2023-01-25] MEDS: pantoprazole 40mg Tablet.DR PO SCH (07:40)
[2023-01-25] MEDS: docusate sod 100mg capsule PO SCH ×2 (07:41→20:00)
[2023-01-25] MEDS: furosemide 20MG tablet PO SCH (07:42)
[2023-01-25] MEDS: aspirin 81mg, enteric-coated 1 TAB TABLET.DR PO SCH (07:42)
[2023-01-25] MEDS: sertraline 50mg tablet PO SCH (07:42)
[2023-01-25] MEDS: MELOXICAM 7.5 MG TABLET PO SCH (07:43)
[2023-01-25] MEDS: levetiracetam 250mg tablet PO SCH ×2 (07:45→22:38)
[2023-01-25] MEDS: atorvastatin 20mg tablet PO SCH (07:45)
[2023-01-25] MEDS: cyclobenzaprine 10mg tablet PO SCH ×3 (07:46→22:37)
[2023-01-25] MEDS: lisinopril 10 MG tablet PO SCH (07:47)
[2023-01-25] MEDS: gabapentin 300mg capsule PO SCH ×3 (07:48→22:38)
[2023-01-25] MEDS: duloxetine 30mg CAPSULE.DR PO SCH (07:50)
[2023-01-25] MEDS: heparin, porcine 5000 units/ml vial SQ SCH ×2 (07:53→22:37)
[2023-01-25] MEDS: K and/or MAG REPLACEMENT MC SCH ×2 (08:00→20:00)
[2023-01-25 12:39] VITALS: BP 194/81
--- NOTE | 2023-01-25 14:12 | NUR ---
PRESSURE ULCER EDUCATION: DEFINITION: A pressure ulcer is an area of skin that breaks down when you stay in one position too long. The constant pressure against the skin reduces the blood flow to that area and the affected tissue dies. CAUSES: "Being bedridden or in a wheelchair "Fragile skin "Having a chronic condition, such as diabetes or vascular disease "Inability to move certain parts of your body without assistance "Older age "Incontinence of urine or stool SYMPTOMS: "A reddened area that DOES NOT turn white when pressed on - this can be the beginning of a pressure ulcer "A blister, deep sore or a crater - these can be advanced pressure ulcers FIRST AID: "Relieve the pressure on this area "Keep the area clean and dry "Call your primary doctor if you see any of the above symptoms "DO NOT massage the area "DO NOT use a donut shaped or ring shaped pillow- these actually interfere with the blood flow and cause complications PREVENTION: "Check for pressure ulcers everyday "Change position at least every two hours to relieve pressure "Use items that help relieve pressure- pillows, sheepskin, foam padding, and powders. "Keep skin clean and dry "Eat healthy well balanced meals "Exercise daily IF YOU SEE ANY OF THESE SYMPTOMS WHILE IN THE HOSPITAL - TELL YOUR NURSE IMMEDIATELY. IF YOU SEE ANY OF THESE SYMPTOMS WHILE AT HOME OR HAVE ANY QUESTIONS OR CONCERNS ABOUT PRESSURE ULCERS - CALL YOUR PRIMARY DOCTOR IMMEDIATELY. Addendum: 01/25/23 at 1412 by Poornima Porter LVN Amended: Links added.
[2023-01-25 17:22] VITALS: BP 169/76
--- NOTE | 2023-01-25 17:55 | NUR ---
Report called to [facility], patient accepted but no bed at this time. Call back number [phone]. Transfer center requested current med list and labs. These need to be faxed to transfer center at [phone]. Other needed documentation is current discharge summary updated regularly and all imagery on disc.
[2023-01-25 18:00] VITALS: BP 169/76
--- NOTE | 2023-01-25 18:19 | NUR ---
Problems reprioritized. Patient report given, questions answered & plan of care reviewed with Efren PRATT.
[2023-01-25] MEDS: insulin glargine (Lantus) pen - multi-dose SQ SCH (21:00)
[2023-01-26] MEDS: temazepam 15mg capsule PO PRN ×2 (01:25→21:00)
[2023-01-26] MEDS: normal saline 1000ml 1,000 ML IV SCH ×2 (01:36→09:15)
--- NOTE | 2023-01-26 02:25 | NUR ---
pt refused her night time vitals
[2023-01-26] MEDS: HYDROmorphone inj. 0.5 MG/0.5 ML DISP.SYRIN IV PRN ×4 (03:05→14:28)
[2023-01-26] MEDS: vancomycin/NS 1 GM ADD-VANTAGE 250 ML IV SCH ×2 (03:13→13:06)
--- NOTE | 2023-01-26 05:00 | NUR ---
AGREE WITH ADOPTION SPECIALIST ASSESSMENT
[2023-01-26] MEDS: HYDROcodone/acetaminophen 10/325mg tab PO PRN ×2 (05:24→15:20)
[2023-01-26 06:11] LABS: ALANINE AMINOTRANSFERASE 16 U/L (12-78); ALBUMIN 2.6 G/DL (3.4-5.0); ALBUMIN/GLOBULIN RATIO 0.6 (1.1-1.5); ALKALINE PHOSPHATASE 126 IU/L (46-116); ANION GAP 12 (8-16); ASPARTATE AMINO TRANSFERASE 16 U/L (10-37); BILIRUBIN,TOTAL 0.4 MG/DL (0.1-1.0); BLOOD UREA NITROGEN 2 MG/DL (7-18); BUN/CREATININE RATIO 4.1 (10.0-20.0); CHLORIDE 104 MMOL/L (99-107); CREATININE 0.49 MG/DL (0.40-0.90); GLUCOSE 167 MG/DL (70-104); MAGNESIUM 1.1 MG/DL (1.5-2.4); PHOSPHORUS 3.6 MG/DL (2.3-4.5); POTASSIUM 3.1 MMOL/L (3.5-5.1); SODIUM 140 MMOL/L (135-145); TOTAL CARBON DIOXIDE 24.4 MMOL/L (24-32); eGFR > 90 ML/MIN
[2023-01-26 06:12] LABS: BASOPHILS % (AUTO) 0.6 % (0-1); EOSINOPHILS # (AUTO) 0.4 X10'3 (0-0.9); EOSINOPHILS % (AUTO) 5.7 % (0-6); HEMATOCRIT 27.6 % (35.0-45.0); HEMOGLOBIN 9.2 g/dl (12.0-16.0); LYMPHOCYTES # (AUTO) 0.9 X10'3 (1.1-4.8); LYMPHOCYTES % (AUTO) 13.9 % (21-51); MEAN CORPUSCULAR HEMOGLOBIN 27.9 PG (27.0-31.0); MEAN CORPUSCULAR HGB CONC 33.2 g/dL (33.0-36.5); MEAN PLATELET VOLUME 9.5 FL (7.4-10.4); MONOCYTES # (AUTO) 0.7 X10'3 (0-0.9); MONOCYTES % (AUTO) 11.2 % (2-12); NEUTROPHILS # (AUTO) 4.5 X10'3 (1.8-7.7); NEUTROPHILS % (AUTO) 68.6 % (42-75); PLATELET COUNT 202 X10'3 (140-440); RED BLOOD COUNT 3.28 X10'6 (4.20-5.60); RED CELL DISTRIBUTION WIDTH 18.2 % (11.5-14.5); WHITE BLOOD COUNT 6.5 X10'3 (4.5-11.0)
[2023-01-26 06:30] VITALS: BP 197/84
--- NOTE | 2023-01-26 06:35 | NUR ---
Patient in room PCU 3009. I have received report from Efren GALICIA and had the opportunity to ask questions and assume patient care.
[2023-01-26] MEDS: CefTRIAXone 2gm/D5W 50ml BAG 50 ML IV SCH (07:29)
[2023-01-26] MEDS: K and/or MAG REPLACEMENT MC SCH ×2 (08:00→20:00)
[2023-01-26] MEDS: docusate sod 100mg capsule PO SCH ×2 (08:00→20:00)
[2023-01-26] MEDS: allopurinol 100mg tablet PO SCH (08:21)
[2023-01-26] MEDS: atorvastatin 20mg tablet PO SCH (08:21)
[2023-01-26] MEDS: MELOXICAM 7.5 MG TABLET PO SCH (08:21)
[2023-01-26] MEDS: potassium chloride 10mEq ER tablet PO SCH (08:21)
[2023-01-26] MEDS: pioglitazone 45mg tablet PO SCH (08:21)
[2023-01-26] MEDS: sertraline 50mg tablet PO SCH (08:22)
[2023-01-26] MEDS: pantoprazole 40mg Tablet.DR PO SCH (08:22)
[2023-01-26] MEDS: aspirin 81mg, enteric-coated 1 TAB TABLET.DR PO SCH (08:22)
[2023-01-26] MEDS: duloxetine 30mg CAPSULE.DR PO SCH (08:22)
[2023-01-26] MEDS: levetiracetam 250mg tablet PO SCH ×2 (08:22→20:40)
[2023-01-26] MEDS: furosemide 20MG tablet PO SCH (08:22)
[2023-01-26] MEDS: heparin, porcine 5000 units/ml vial SQ SCH ×2 (08:22→20:41)
[2023-01-26] MEDS: gabapentin 300mg capsule PO SCH ×3 (08:22→20:40)
[2023-01-26] MEDS: cyclobenzaprine 10mg tablet PO SCH ×3 (08:22→20:40)
[2023-01-26] MEDS: potassium Cl 20 mEq SR tablet PO PRN ×3 (08:23→17:51)
[2023-01-26] MEDS: lisinopril 10 MG tablet PO SCH (08:23)
[2023-01-26 11:00] VITALS: BP 176/72
--- NOTE | 2023-01-26 14:04 | NUR ---
Nutrition Consult: Per PACKER DENTURE, pt poor intake wants to bring shakes from home. AMANDA confirmed this is within pt rights but will notify MD of recommendations for Ensure Enlive TIDWM given pt willingness to intake ONS and ~0-25% initial meals intake this LOS. Noted WOC assessment L foot DM ulcer w/ no depth or staging. Rec: 1. continue carb controlled diet; liberalize to regular if poor intake persists- shakes from home per pt preferences 2. Ensure Enlive TIDWM; pending physician verification in EMR Addendum: 01/26/23 at [address] Amended: Links added.
--- NOTE | 2023-01-26 14:22 | NUR ---
PAGER ID: [phone] MESSAGE: [phone] Trembath Patient's pain is still out of control with the 1 mg Dilaudid Q 3 hours PRN. Also she states she is allergic to insulin it is order but she hasn't met protocol yet. Thank you Tori GALICIA [phone]
--- NOTE | 2023-01-26 14:50 | NUR ---
Dr Ott called and gave order for 2 mg Dilaudid Q3 hours PRN.
[2023-01-26 15:00] VITALS: BP 184/91
--- NOTE | 2023-01-26 15:30 | NUR ---
PAGER ID: [phone] MESSAGE: [phone] Trembath Can I discontinue ordered Insulin due to patient being allergic to it. Thank you Tori [phone]
--- NOTE | 2023-01-26 17:21 | NUR ---
I agree with WINE AND SPIRITS CLERK assessment.
[2023-01-26] MEDS: HYDROmorphone 1 mg/ml syringe IV PRN ×2 (17:46→21:05)
[2023-01-26 18:00] VITALS: BP 155/74
[2023-01-26] MEDS ORDERED: lactose-reduced food (Ensure Enlive) - 237ml bottle PO SCH (18:00)
--- NOTE | 2023-01-26 18:22 | NUR ---
Problems reprioritized. Patient report given, questions answered & plan of care reviewed with Efren GALICIA.
[2023-01-26] MEDS: insulin glargine (Lantus) pen - multi-dose SQ SCH (20:43)
[2023-01-27] MEDS: vancomycin/NS 1 GM ADD-VANTAGE 250 ML IV SCH ×2 (00:38→16:11)
[2023-01-27] MEDS: HYDROmorphone 1 mg/ml syringe IV PRN ×3 (00:39→07:51)
[2023-01-27] MEDS: normal saline 1000ml 1,000 ML IV SCH ×3 (00:39→16:18)
[2023-01-27 01:57] VITALS: BP 157/67
--- NOTE | 2023-01-27 02:17 | NUR ---
I AGREE WITH HARD TILE SETTER ASSESSMENTS
[2023-01-27 06:30] VITALS: BP 190/92
--- NOTE | 2023-01-27 06:30 | NUR ---
Patient in room PCU 3009. I have received report from Efren GALICIA and had the opportunity to ask questions and assume patient care.
[2023-01-27] MEDS: HYDROcodone/acetaminophen 10/325mg tab PO PRN (07:06)
[2023-01-27 07:32] LABS: BASOPHILS % (AUTO) 0.5 % (0-1); EOSINOPHILS # (AUTO) 0.4 X10'3 (0-0.9); EOSINOPHILS % (AUTO) 4.4 % (0-6); HEMATOCRIT 30.8 % (35.0-45.0); HEMOGLOBIN 10.2 g/dl (12.0-16.0); LYMPHOCYTES # (AUTO) 0.6 X10'3 (1.1-4.8); MEAN CORPUSCULAR HEMOGLOBIN 27.8 PG (27.0-31.0); MEAN PLATELET VOLUME 10.1 FL (7.4-10.4); MONOCYTES # (AUTO) 0.7 X10'3 (0-0.9); MONOCYTES % (AUTO) 8.4 % (2-12); NEUTROPHILS # (AUTO) 6.9 X10'3 (1.8-7.7); NEUTROPHILS % (AUTO) 79.7 % (42-75); PLATELET COUNT 223 X10'3 (140-440); RED BLOOD COUNT 3.67 X10'6 (4.20-5.60); RED CELL DISTRIBUTION WIDTH 18.1 % (11.5-14.5); WHITE BLOOD COUNT 8.7 X10'3 (4.5-11.0)
[2023-01-27 07:55] LABS: ALANINE AMINOTRANSFERASE 16 U/L (12-78); ALBUMIN 2.9 G/DL (3.4-5.0); ALBUMIN/GLOBULIN RATIO 0.6 (1.1-1.5); ALKALINE PHOSPHATASE 141 IU/L (46-116); ANION GAP 12 (8-16); ASPARTATE AMINO TRANSFERASE 20 U/L (10-37); BILIRUBIN,TOTAL 0.4 MG/DL (0.1-1.0); BLOOD UREA NITROGEN 2 MG/DL (7-18); BUN/CREATININE RATIO 4.4 (10.0-20.0); CALCIUM 9.5 MG/DL (8.5-10.1); CHLORIDE 102 MMOL/L (99-107); CREATININE 0.45 MG/DL (0.40-0.90); GLUCOSE 169 MG/DL (70-104); MAGNESIUM 1.2 MG/DL (1.5-2.4); PHOSPHORUS 3.6 MG/DL (2.3-4.5); POTASSIUM 3.5 MMOL/L (3.5-5.1); SODIUM 139 MMOL/L (135-145); TOTAL CARBON DIOXIDE 24.8 MMOL/L (24-32); TOTAL PROTEIN 7.6 G/DL (6.4-8.2); eGFR > 90 ML/MIN
[2023-01-27] MEDS: docusate sod 100mg capsule PO SCH ×2 (08:00→20:00)
[2023-01-27] MEDS: K and/or MAG REPLACEMENT MC SCH ×2 (08:00→19:07)
[2023-01-27] MEDS: CefTRIAXone 2gm/D5W 50ml BAG 50 ML IV SCH (08:00)
[2023-01-27] MEDS: allopurinol 100mg tablet PO SCH (08:07)
[2023-01-27] MEDS: cyclobenzaprine 10mg tablet PO SCH ×3 (08:07→21:58)
[2023-01-27] MEDS: gabapentin 300mg capsule PO SCH ×3 (08:07→21:58)
[2023-01-27] MEDS: pantoprazole 40mg Tablet.DR PO SCH (08:07)
[2023-01-27] MEDS: furosemide 20MG tablet PO SCH (08:07)
[2023-01-27] MEDS: levetiracetam 250mg tablet PO SCH ×2 (08:07→20:03)
[2023-01-27] MEDS: lisinopril 10 MG tablet PO SCH (08:10)
[2023-01-27] MEDS: sertraline 50mg tablet PO SCH (08:11)
[2023-01-27] MEDS: aspirin 81mg, enteric-coated 1 TAB TABLET.DR PO SCH (08:11)
[2023-01-27] MEDS: potassium chloride 10mEq ER tablet PO SCH (08:11)
[2023-01-27] MEDS: duloxetine 30mg CAPSULE.DR PO SCH (08:11)
[2023-01-27] MEDS: atorvastatin 20mg tablet PO SCH (08:11)
[2023-01-27] MEDS: MELOXICAM 7.5 MG TABLET PO SCH (08:12)
[2023-01-27] MEDS: pioglitazone 45mg tablet PO SCH (08:12)
[2023-01-27] MEDS: heparin, porcine 5000 units/ml vial SQ SCH ×2 (08:16→20:04)
--- NOTE | 2023-01-27 08:18 | NUR ---
Spoke with Dr Cruz about patient's allergy to Insulin. Patient states she is allergic to insulin and it makes her itch and swell. Dr Cruz gave order to DC insulin protocol.
[2023-01-27] MEDS ORDERED: naloxone 0.4 mg/ml inj IV PRN (08:30)
[2023-01-27] MEDS: PCA WASTE DOCUMENTATION 1 MG ML MC SCH (08:30)
[2023-01-27] MEDS: HYDROmorph/NS 0.2 mg/ml PCA 100 ML IV SCH ×8 (11:00→23:00)
--- NOTE | 2023-01-27 13:13 | NUR ---
I AGREE WITH RECORDING STUDIO INTERN ASSESSMENT
[2023-01-27 15:00] VITALS: BP 147/83
[2023-01-27 18:00] VITALS: BP 168/74
--- NOTE | 2023-01-27 18:36 | NUR ---
Problems reprioritized. Patient report given, questions answered & plan of care reviewed with Ivette PRATT.
--- NOTE | 2023-01-27 19:11 | NUR ---
ATE 15GM CARBS, BG 127 NOT ON PROTOCOL DUE TO INSULINITIS - TAKES METFORMIN BUT ON HOLD FOR 48HRS. Patient in room PCU 3009. I have received report from and had the opportunity to ask questions and assume patient care.
[2023-01-28 00:59] VITALS: BP 126/52
[2023-01-28] MEDS: HYDROmorph/NS 0.2 mg/ml PCA 100 ML IV SCH ×12 (01:00→23:00)
[2023-01-28] MEDS: normal saline 1000ml 1,000 ML IV SCH ×2 (01:15→13:04)
[2023-01-28] MEDS: vancomycin/NS 1 GM ADD-VANTAGE 250 ML IV SCH ×2 (01:54→15:39)
[2023-01-28 06:00] VITALS: BP 147/60
--- NOTE | 2023-01-28 06:29 | NUR ---
Problems reprioritized. Patient report given, questions answered & plan of care reviewed with Tori GALICIA.
[2023-01-28 06:41] LABS: BASOPHILS % (AUTO) 0.3 % (0-1); EOSINOPHILS # (AUTO) 0.1 X10'3 (0-0.9); EOSINOPHILS % (AUTO) 1.4 % (0-6); HEMATOCRIT 26.9 % (35.0-45.0); LYMPHOCYTES # (AUTO) 0.5 X10'3 (1.1-4.8); LYMPHOCYTES % (AUTO) 4.9 % (21-51); MEAN CORPUSCULAR HEMOGLOBIN 28.3 PG (27.0-31.0); MEAN CORPUSCULAR HGB CONC 33.6 g/dL (33.0-36.5); MEAN CORPUSCULAR VOLUME 84.3 FL (78-98); MEAN PLATELET VOLUME 9.7 FL (7.4-10.4); MONOCYTES # (AUTO) 0.7 X10'3 (0-0.9); MONOCYTES % (AUTO) 7.2 % (2-12); NEUTROPHILS % (AUTO) 86.2 % (42-75); PLATELET COUNT 210 X10'3 (140-440); RED BLOOD COUNT 3.19 X10'6 (4.20-5.60); WHITE BLOOD COUNT 10.4 X10'3 (4.5-11.0)
[2023-01-28 06:49] LABS: ALANINE AMINOTRANSFERASE 12 U/L (12-78); ALBUMIN 2.5 G/DL (3.4-5.0); ALBUMIN/GLOBULIN RATIO 0.6 (1.1-1.5); ALKALINE PHOSPHATASE 120 IU/L (46-116); ANION GAP 12 (8-16); ASPARTATE AMINO TRANSFERASE 11 U/L (10-37); BILIRUBIN,TOTAL 0.4 MG/DL (0.1-1.0); BLOOD UREA NITROGEN 3 MG/DL (7-18); BUN/CREATININE RATIO 5.8 (10.0-20.0); CALCIUM 8.8 MG/DL (8.5-10.1); CHLORIDE 100 MMOL/L (99-107); CREATININE 0.52 MG/DL (0.40-0.90); GLUCOSE 199 MG/DL (70-104); MAGNESIUM 1.1 MG/DL (1.5-2.4); PHOSPHORUS 3.7 MG/DL (2.3-4.5); POTASSIUM 3.6 MMOL/L (3.5-5.1); SODIUM 134 MMOL/L (135-145); TOTAL CARBON DIOXIDE 22.1 MMOL/L (24-32); TOTAL PROTEIN 6.8 G/DL (6.4-8.2); eGFR > 90 ML/MIN
--- NOTE | 2023-01-28 07:04 | NUR ---
Patient in room PCU 3009. I have received report from Ivette PRATT and had the opportunity to ask questions and assume patient care.
[2023-01-28] MEDS: allopurinol 100mg tablet PO SCH (07:59)
[2023-01-28] MEDS: MELOXICAM 7.5 MG TABLET PO SCH ×3 (08:00→21:49)
[2023-01-28] MEDS: pantoprazole 40mg Tablet.DR PO SCH (08:00)
[2023-01-28] MEDS: furosemide 20MG tablet PO SCH (08:00)
[2023-01-28] MEDS: duloxetine 30mg CAPSULE.DR PO SCH (08:00)
[2023-01-28] MEDS: K and/or MAG REPLACEMENT MC SCH ×2 (08:00→20:00)
[2023-01-28] MEDS: levetiracetam 250mg tablet PO SCH ×2 (08:00→19:50)
[2023-01-28] MEDS: lisinopril 10 MG tablet PO SCH (08:01)
[2023-01-28] MEDS: aspirin 81mg, enteric-coated 1 TAB TABLET.DR PO SCH (08:02)
[2023-01-28] MEDS: gabapentin 300mg capsule PO SCH ×3 (08:02→21:49)
[2023-01-28] MEDS: pioglitazone 45mg tablet PO SCH (08:02)
[2023-01-28] MEDS: atorvastatin 20mg tablet PO SCH (08:02)
[2023-01-28] MEDS: docusate sod 100mg capsule PO SCH ×2 (08:02→19:51)
[2023-01-28] MEDS: cyclobenzaprine 10mg tablet PO SCH ×3 (08:02→21:49)
[2023-01-28] MEDS: sertraline 50mg tablet PO SCH (08:02)
[2023-01-28] MEDS: potassium chloride 10mEq ER tablet PO SCH (08:02)
[2023-01-28] MEDS: heparin, porcine 5000 units/ml vial SQ SCH ×2 (08:04→19:50)
[2023-01-28] MEDS: CefTRIAXone 2gm/D5W 50ml BAG 50 ML IV SCH (08:10)
[2023-01-28] MEDS: PCA WASTE DOCUMENTATION 1 MG ML MC SCH (08:11)
--- NOTE | 2023-01-28 08:45 | NUR ---
Spoke with Dr. Cruz about restarting metformin and changing patient's Meloxicam to HS. gave verbal orders to restart metformin and change scheduled time of Meloxicam.
[2023-01-28 11:00] VITALS: BP 145/52
[2023-01-28 15:00] VITALS: BP 107/54
--- NOTE | 2023-01-28 15:55 | NUR ---
Initial: Pt admit for osteomyelitis of T9-T10, insulin neuritis, and cellulitis/DFU to left foot. Pt on a CHO controlled diet and eating poorly, documented with mostly 0-25% PO intake since admit. Pt seen at bedside, reports very low appetite secondary to abdominal pain. Pt denies any food preferences at this time. RD discussed the importance of PO intake with emphasis on protein, pt verbalized understanding and is agreeable to ONS. Noted ONS still pending physician approval in EMR though would be very beneficial given poor PO intake. RD discussed the possibility of an NGT for TF IF PO intake does not improve of which pt is agreeable to if needed. Pt denies food allergies and reports difficulty chewing and agrees to soft to chew chopped food, d/w dietary. LBM 01/22, pt confirms and states she previously was refusing the routine bowel care though is taking it now. RD encouraged allowing assistance for a BM, especially since pt is with low PO intake and already with c/o abdominal pain. Pt verbalized understanding and agreed to power pudding WS tonight, d/w dietary. Pt provided with RD contact information and encouraged to reach out if needed. Will continue to follow closely. Recommendation: 1) Liberalize to regular diet given poor PO intake since admit; allow shakes from home per pt preferences 2) Ensure Enlive TIDWM; pending physician verification in EMR 3) Soft to chew chopped food per pt request d/t difficulty chewing 4) Consider NGT for EN if PO intake does not improve, d/w pt 01/28 5) Routine bowel care; consider additional given no BM x 6 days 6) Weekly scaled weights Addendum: 01/28/23 at [address] Amended: Links added.
--- NOTE | 2023-01-28 16:35 | NUR ---
INDUSTRIAL REFRIGERATION MECHANIC documentation: I have reviewed and agree with all interventions, assessments performed and documented by CJ BAUER LVN.
--- NOTE | 2023-01-28 17:18 | NUR ---
[place] documentation: I have reviewed and agree with all interventions, assessments performed and documented by Kristyn GALICIA. [place] Medication Administration: For this medication-pass time frame, all medication were reviewed, dispensed, administered and documented per hospital policy by Kristyn GALICIA.
--- NOTE | 2023-01-28 17:41 | NUR ---
Patient returned from X-ray
--- NOTE | 2023-01-28 17:54 | NUR ---
Patient going to MRI
[2023-01-28 18:00] VITALS: BP 124/46
[2023-01-28] MEDS ORDERED: GADOTERATE MEGLUMINE 7.5 MMOL/15 ML VIAL IV ONE (18:11)
--- NOTE | 2023-01-28 18:36 | NUR ---
Problems reprioritized. Patient report given, questions answered & plan of care reviewed with Ivette PRATT.
[2023-01-28] MEDS: metFORMIN 500mg tablet PO SCH (19:50)
[2023-01-29] VITALS (7 sets, daily range): BP systolic 115–186; BP diastolic 53–89
[2023-01-29] MEDS: vancomycin/NS 1 GM ADD-VANTAGE 250 ML IV SCH (00:33)
[2023-01-29] MEDS: HYDROmorph/NS 0.2 mg/ml PCA 100 ML IV SCH ×12 (01:00→23:00)
[2023-01-29] MEDS: normal saline 1000ml 1,000 ML IV SCH ×3 (05:49→17:15)
--- NOTE | 2023-01-29 06:40 | NUR ---
Patient in room PCU 3009. I have received report from Ivette LEON and had the opportunity to ask questions and assume patient care. Pt is laying low fowlers in bed and ios resting comfortably Pt on 3L NC, no s/s of distress. Pt has c/o pain but states the CAD pump is working well. Dilaudid Cad 0.5ml continuious, with bolus of 0.2mg. BLL, call light within reach, frequently used items in reach, frequent rounding, assembler dc field ring socks on. Will continue to monitor.
[2023-01-29 07:36] LABS: MAGNESIUM 1.5 MG/DL (1.5-2.4); PHOSPHORUS 2.9 MG/DL (2.3-4.5)
[2023-01-29] MEDS: K and/or MAG REPLACEMENT MC SCH ×2 (08:02→20:00)
[2023-01-29] MEDS: cyclobenzaprine 10mg tablet PO SCH ×3 (08:09→20:48)
[2023-01-29] MEDS: pioglitazone 45mg tablet PO SCH (08:09)
[2023-01-29] MEDS: CefTRIAXone 2gm/D5W 50ml BAG 50 ML IV SCH (08:09)
[2023-01-29] MEDS: docusate sod 100mg capsule PO SCH ×2 (08:09→20:46)
[2023-01-29] MEDS: aspirin 81mg, enteric-coated 1 TAB TABLET.DR PO SCH (08:09)
[2023-01-29] MEDS: magnesium hydroxide 30ml (MOM) UD suspension PO PRN (08:09)
[2023-01-29] MEDS: duloxetine 30mg CAPSULE.DR PO SCH (08:09)
[2023-01-29] MEDS: furosemide 20MG tablet PO SCH (08:10)
[2023-01-29] MEDS: potassium chloride 10mEq ER tablet PO SCH (08:10)
[2023-01-29] MEDS: levetiracetam 250mg tablet PO SCH ×2 (08:10→20:47)
[2023-01-29] MEDS: pantoprazole 40mg Tablet.DR PO SCH (08:10)
[2023-01-29] MEDS: gabapentin 300mg capsule PO SCH ×3 (08:10→20:46)
[2023-01-29] MEDS: lisinopril 10 MG tablet PO SCH (08:10)
[2023-01-29] MEDS: metFORMIN 500mg tablet PO SCH ×2 (08:10→20:47)
[2023-01-29] MEDS: allopurinol 100mg tablet PO SCH (08:10)
[2023-01-29] MEDS: atorvastatin 20mg tablet PO SCH (08:10)
[2023-01-29] MEDS: heparin, porcine 5000 units/ml vial SQ SCH ×2 (08:11→20:45)
[2023-01-29] MEDS: sertraline 50mg tablet PO SCH (08:11)
--- NOTE | 2023-01-29 10:28 | NUR ---
Candace Santos 3002-Need help with PIV placement. Pt extremely difficult stick. If you have time. -Debbie EXT [phone] Pg to PICC nurse group. Addendum: 01/29/23 at 1235 by Debbie Landers RN 20 G placed in MATTIE by PICC nurse.
[2023-01-29] MEDS ORDERED: VANCOMYCIN LEVEL IV ONE (12:30)
--- NOTE | 2023-01-29 12:35 | NUR ---
PAGER ID: [phone] MESSAGE: Candace Santos [phone]- Critical VANCO trough of 21.3. Pharm notified. Erica-Debbie EXT [phone]
[2023-01-29] MEDS: VANCOMYCIN 750MG IV in NS 250 ML IV SCH (15:10)
[2023-01-29] MEDS: PCA WASTE DOCUMENTATION 1 MG ML MC SCH (16:00)
--- NOTE | 2023-01-29 18:26 | NUR ---
Problems reprioritized. Patient report given, questions answered & plan of care reviewed with Lissa PRATT.
--- NOTE | 2023-01-29 18:28 | NUR ---
Patient in room PCU 3009. I have received report from Debbie PRATT and had the opportunity to ask questions and assume patient care.
[2023-01-29] MEDS: MELOXICAM 7.5 MG TABLET PO SCH (20:46)
[2023-01-29] MEDS: temazepam 15mg capsule PO PRN (20:59)
[2023-01-29] MEDS ORDERED: hydrALAZINE 20mg/ml inj. IV PRN (23:00)
[2023-01-30] MEDS: VANCOMYCIN 750MG IV in NS 250 ML IV SCH ×2 (00:58→13:00)
[2023-01-30] MEDS: HYDROmorph/NS 0.2 mg/ml PCA 100 ML IV SCH ×8 (01:00→15:00)
[2023-01-30 02:00] VITALS: BP 133/65
[2023-01-30] MEDS: normal saline 1000ml 1,000 ML IV SCH ×2 (03:36→13:15)
[2023-01-30 06:00] VITALS: BP 139/58
--- NOTE | 2023-01-30 06:30 | NUR ---
Problems reprioritized. Patient report given, questions answered & plan of care reviewed with ABILIO PRATT.
--- NOTE | 2023-01-30 06:44 | NUR ---
Patient in room PCU 3009. I have received report from Lissa PRATT and had the opportunity to ask questions and assume patient care. Pt is laying supine in bed and is resting comfortably. Pt on 3L NC, No s/s of distress. Pt easy to arouse. Pt on CAD diludid pump for pain control. CAD per MD orders please see eMAR for interventions. BLL, call light within reach, frequently sed items in reach, frequent rounding, recorder helper seismograph socks on. Will continue to monitor.
[2023-01-30] MEDS: allopurinol 100mg tablet PO SCH (08:00)
[2023-01-30] MEDS: K and/or MAG REPLACEMENT MC SCH (08:00)
[2023-01-30] MEDS: lisinopril 10 MG tablet PO SCH (09:43)
[2023-01-30] MEDS: docusate sod 100mg capsule PO SCH (09:43)
[2023-01-30] MEDS: potassium chloride 10mEq ER tablet PO SCH (09:43)
[2023-01-30] MEDS: levetiracetam 250mg tablet PO SCH (09:44)
[2023-01-30] MEDS: pantoprazole 40mg Tablet.DR PO SCH (09:44)
[2023-01-30] MEDS: aspirin 81mg, enteric-coated 1 TAB TABLET.DR PO SCH (09:44)
[2023-01-30] MEDS: sertraline 50mg tablet PO SCH (09:44)
[2023-01-30] MEDS: pioglitazone 45mg tablet PO SCH (09:44)
[2023-01-30] MEDS: furosemide 20MG tablet PO SCH (09:44)
[2023-01-30] MEDS: atorvastatin 20mg tablet PO SCH (09:44)
[2023-01-30] MEDS: CefTRIAXone 2gm/D5W 50ml BAG 50 ML IV SCH (09:45)
[2023-01-30] MEDS: gabapentin 300mg capsule PO SCH ×2 (09:45→12:34)
[2023-01-30] MEDS: cyclobenzaprine 10mg tablet PO SCH ×2 (09:45→12:34)
[2023-01-30] MEDS: magnesium hydroxide 30ml (MOM) UD suspension PO PRN (09:45)
[2023-01-30] MEDS: metFORMIN 500mg tablet PO SCH (09:45)
[2023-01-30] MEDS: duloxetine 30mg CAPSULE.DR PO SCH (09:45)
[2023-01-30] MEDS: heparin, porcine 5000 units/ml vial SQ SCH (09:46)
[2023-01-30 11:00] VITALS: BP 161/92
--- NOTE | 2023-01-30 12:05 | NUR ---
PAGER ID: [phone] MESSAGE: Candace Santos 3009- c/o pain 06/22 asking for more pain medication. Thanks Debbie RAMIREZ [phone] Addendum: 01/30/23 at 1206 by Debbie Landers RN New orders received, please see eMAR.
[2023-01-30] MEDS ORDERED: HYDROmorphone 1 mg/ml syringe IV ONE (12:10)
--- NOTE | 2023-01-30 12:47 | NUR ---
Candace Santos 3009- call unit regarding Transfer status. -Debbie RAMIREZ [phone] Page to Case Mgmt Addendum: 01/30/23 at 1248 by Debbie Landers RN [facility] stated they can release the bed for a transfer once they recieve a discharge summary and most recent labs. ,
[2023-01-30] MEDS: PCA WASTE DOCUMENTATION 1 MG ML MC SCH (14:59)
[2023-01-30 15:00] VITALS: BP 148/73
--- NOTE | 2023-01-30 17:12 | NUR ---
Report given to [facility] flight crew. Pts Dilaudid CAD switched over to their CAD pump. VSS, pt afebrile, no issues with medications. Daughter Sarah @ bedside. All belonging left with PT. Report called to Marcelina @ [phone].
[2023-01-31] MEDS ORDERED: VANCOMYCIN LEVEL IV ONE (00:30)
== END 2023-01-30 17:14 | disposition short-term general hospital (02) | DRG 540 ==
LOC: ER 11:48 → ED HOLD 01-23 01:19 → EDBEDREQ 01-23 03:09 → PCU 3S 01-23 04:05
PROVIDERS: ADMIT Family Medicine; ATTEND Family Medicine
PROC: BW211ZZ Computerized Tomography (CT Scan) of Abdomen and Pelvis using Low Osmolar Contrast (ICD-10-PCS; principal; 2023-01-23)
DX: M46.24 Osteomyelitis of vertebra, thoracic region (principal); G45.9 Transient cerebral ischemic attack, unspecified; I13.0 Hypertensive heart and chronic kidney disease with heart failure and stage 1 through stage 4 chronic kidney disease, or unspecified chronic kidney disease; N39.0 Urinary tract infection, site not specified; I31.39 Other pericardial effusion (noninflammatory); I50.32 Chronic diastolic (congestive) heart failure; K57.32 Diverticulitis of large intestine without perforation or abscess without bleeding; L03.116 Cellulitis of left lower limb; E11.69 Type 2 diabetes mellitus with other specified complication; Z20.822 Contact with and (suspected) exposure to COVID-19; E11.22 Type 2 diabetes mellitus with diabetic chronic kidney disease; E11.42 Type 2 diabetes mellitus with diabetic polyneuropathy; E11.65 Type 2 diabetes mellitus with hyperglycemia; E78.5 Hyperlipidemia, unspecified; F32.A Depression, unspecified; M54.50 Low back pain, unspecified; F41.9 Anxiety disorder, unspecified; G40.909 Epilepsy, unspecified, not intractable, without status epilepticus; B19.20 Unspecified viral hepatitis C without hepatic coma; E11.41 Type 2 diabetes mellitus with diabetic mononeuropathy; K21.9 Gastro-esophageal reflux disease without esophagitis; D63.8 Anemia in other chronic diseases classified elsewhere; K42.9 Umbilical hernia without obstruction or gangrene; G89.4 Chronic pain syndrome; K76.0 Fatty (change of) liver, not elsewhere classified; I27.20 Pulmonary hypertension, unspecified; R29.6 Repeated falls; J45.909 Unspecified asthma, uncomplicated; K44.9 Diaphragmatic hernia without obstruction or gangrene; M10.9 Gout, unspecified; M48.04 Spinal stenosis, thoracic region; N18.9 Chronic kidney disease, unspecified; Z79.84 Long term (current) use of oral hypoglycemic drugs; Z86.73 Personal history of transient ischemic attack (TIA), and cerebral infarction without residual deficits; Z87.891 Personal history of nicotine dependence; Z90.49 Acquired absence of other specified parts of digestive tract; Z88.5 Allergy status to narcotic agent; Z91.81 History of falling; Z98.51 Tubal ligation status; Z79.899 Other long term (current) drug therapy; Z79.82 Long term (current) use of aspirin
CPT/HCPCS: 36410; 36415; 71045; 71100; 71250; 72070; 72100; 72146; 72157; 74177; 76937; 80053; 80061; 80202; 81001; 82948; 83036; 83605; 83690; 83735; 83880; 84100; 84145; 84443; 84484; 85025; 85379; 85610; 85651; 85730; 86140; 86592; 86703; 87040; 87081; 87088; 87811; 96374; 96375; 97161; 97530; 99285; A4333; A4615; A4649; A6196; A6258; A6446; A6449; A9575; C1751; G0378; J0360; J0696; J1170; J1644; J2270; J2405; J2543; J3370; J3475; J3490; J7030; J7040; J7050; Q0163; Q9967

== ENCOUNTER 2023-05-02 01:09 | Emergency (ER) | payer MEDICARE, OTHER ==
[~2023-05-02] VITALS: Ht 160 cm; Wt 71.8 kg
[~2023-05-02 01:09] MED LIST changes: +ALLO100T PO; -ASPI-100 PO; +ASPI-611 PO; +ATOR20TA66 PO; -CYAN100T9 PO; +DOXY-224 PO; +FURO-150 PO; -FURO20TA4 PO; -GABA300C PO; +GABA600T13 PO; +HYDR-3964 PO; -HYDR-3972 PO; +MELO-102 PO; +METF-900 PO; -MORP-92 PO; +OXYC5CAP19 PO; +PIOG45TA65 PO; -POLY17PO59 PO; -POTA-197 PO; +POTA-366 PO; -PREG100C PO; +PREG225C7 PO; +SERT-433 PO; +TIZA-205 PO; -TIZA4CAP PO
[2023-05-02 01:14] VITALS: BP 121/70; PULSE 66; O2SAT 97
[2023-05-02] MEDS ORDERED: HYDROcodone/acetaminophen 10/325mg tab PO ONE (01:40)
[2023-05-02] MEDS ORDERED: oxyCODONE IR 5mg (immed. release) tablet PO ONE (02:40)
[2023-05-02 03:20] VITALS: RESP 13
[2023-05-02 06:24] VITALS: TEMP 98.1
== END 2023-05-02 06:26 | disposition home or self-care (01) ==
LOC: ER 01:09
DX: M54.50 Low back pain, unspecified (principal); S16.1XXA Strain of muscle, fascia and tendon at neck level, initial encounter; I11.0 Hypertensive heart disease with heart failure; I50.9 Heart failure, unspecified; J45.909 Unspecified asthma, uncomplicated; K21.9 Gastro-esophageal reflux disease without esophagitis; E11.9 Type 2 diabetes mellitus without complications; Z88.5 Allergy status to narcotic agent; Z79.899 Other long term (current) drug therapy; Z90.49 Acquired absence of other specified parts of digestive tract; Z98.51 Tubal ligation status
CPT/HCPCS: 72125; 72128; 72131; 99284

== ENCOUNTER 2023-05-07 14:00 | Emergency (ER) | payer MEDICARE, OTHER ==
[~2023-05-07] VITALS: Ht 160 cm; Wt 71.8 kg
[2023-05-07] MEDS ORDERED: normal saline 1000ML IV soln IVB ONE ×2 (14:20→15:30)
[2023-05-07] MEDS: normal saline 1000ml 1,000 ML IV ONE ×4 (14:51→15:42)
[2023-05-07 15:14] LABS: EOSINOPHILS # (AUTO) 0.2 X10'3 (0-0.9); HEMATOCRIT 33.8 % (35.0-45.0); HEMOGLOBIN 11.1 g/dl (12.0-16.0); NEUTROPHILS # (AUTO) 6.2 X10'3 (1.8-7.7); RED BLOOD COUNT 3.88 X10'6 (4.20-5.60); WHITE BLOOD COUNT 9.2 X10'3 (4.5-11.0)
[2023-05-07 15:15] LABS: BASOPHILS # (AUTO) 0.1 X10'3 (0-0.2); BASOPHILS % (AUTO) 0.6 % (0-1); EOSINOPHILS % (AUTO) 2.7 % (0-6); LYMPHOCYTES % (AUTO) 22.1 % (21-51); MEAN CORPUSCULAR HEMOGLOBIN 28.7 PG (27.0-31.0); MEAN CORPUSCULAR HGB CONC 32.9 g/dL (33.0-36.5); MEAN CORPUSCULAR VOLUME 87.3 FL (78-98); MONOCYTES # (AUTO) 0.7 X10'3 (0-0.9); MONOCYTES % (AUTO) 7.4 % (2-12); NEUTROPHILS % (AUTO) 67.2 % (42-75); PLATELET COUNT 162 X10'3 (140-440); RED CELL DISTRIBUTION WIDTH 18.4 % (11.5-14.5)
[2023-05-07 15:16] LABS: APTT 28 SECONDS (22-32); INR 1.1 INR; PROTHROMBIN TIME 12.1 SECONDS (9.0-12.0)
[2023-05-07 15:21] LABS: GLUCOSE 143 MG/DL (70-104); SODIUM 139 MMOL/L (135-145)
[2023-05-07 15:22] LABS: ALANINE AMINOTRANSFERASE 16 U/L (12-78); ALBUMIN 2.7 G/DL (3.4-5.0); ALBUMIN/GLOBULIN RATIO 0.7 (1.1-1.5); ALKALINE PHOSPHATASE 130 IU/L (46-116); ANION GAP 12 (8-16); ASPARTATE AMINO TRANSFERASE 17 U/L (10-37); BILIRUBIN,TOTAL 0.3 MG/DL (0.1-1.0); BLOOD UREA NITROGEN 38 MG/DL (7-18); CALCIUM 8.5 MG/DL (8.5-10.1); CHLORIDE 106 MMOL/L (99-107); CREATININE 1.52 MG/DL (0.40-0.90); POTASSIUM 4.2 MMOL/L (3.5-5.1); TOTAL CARBON DIOXIDE 20.9 MMOL/L (24-32); TOTAL PROTEIN 6.6 G/DL (6.4-8.2); eCRCL 29 ML/MIN; eGFR 34 ML/MIN
[2023-05-07 15:29] LABS: MAGNESIUM 1.3 MG/DL (1.5-2.4); PRO BRAIN NATRIURETIC PEPTIDE 1449 PG/ML (0-125)
[2023-05-07 15:30] LABS: LARGE PLATELETS FEW; PLATELET ESTIMATE NORMAL
[2023-05-07 15:35] LABS: ANISOCYTOSIS 2+; POIKILOCYTOSIS FEW
[2023-05-07 15:36] LABS: ETHANOL < 10 MG/DL (<10)
[2023-05-07] MEDS ORDERED: magnesium oxide 400mg tablet PO ONE (16:15)
[2023-05-07] MEDS ORDERED: magnesium 2GM in 50ml NS 50 ML IV ONE (16:15)
[2023-05-07] MEDS ORDERED: LISI5TAB22 PO (18:30)
[2023-05-07 18:38] LABS: BILIRUBIN,URINE NEGATIVE (Neg); CLARITY,URINE CLEAR (Clear); COLOR,URINE YELLOW (Yellow); GLUCOSE, URINE NEGATIVE (Neg); KETONES,URINE NEGATIVE (Neg); LEUKOCYTE ESTERASE ,URINE NEGATIVE (Neg); NITRITES, URINE NEGATIVE (Neg); OCCULT BLOOD,URINE NEGATIVE (Neg); PH,URINE 5.5 (4.8-8.0); PROTEIN,URINE NEGATIVE (Neg); UROBILINOGEN,URINE 0.2 E.U/dL (0.2-1.0)
[2023-05-07 18:46] LABS: UA COLLECTION TYPE VOIDED
[2023-05-07 18:47] VITALS: BP 138/67; PULSE 84; RESP 13; O2SAT 99
[2023-05-07 19:07] LABS: URINE AMPHETAMINE SCREEN NEGATIVE (Neg); URINE BARBITUATE SCREEN NEGATIVE (Neg); URINE BENZODIAZEPINES SCREEN NEGATIVE (Neg); URINE CANNABINOID SCREEN POSITIVE (Neg); URINE COCAINE SCREEN NEGATIVE (Neg); URINE METHADONE SCREEN NEGATIVE (Neg); URINE OPIATE SCREEN NEGATIVE (Neg); URINE PHENCYCLIDINE SCREEN NEGATIVE (Neg)
== END 2023-05-07 18:49 | disposition home or self-care (01) ==
LOC: ER 14:01
DX: R42 Dizziness and giddiness (principal); I95.9 Hypotension, unspecified; F12.90 Cannabis use, unspecified, uncomplicated; I11.0 Hypertensive heart disease with heart failure; I50.9 Heart failure, unspecified; J45.909 Unspecified asthma, uncomplicated; K21.9 Gastro-esophageal reflux disease without esophagitis; E11.9 Type 2 diabetes mellitus without complications; Z88.5 Allergy status to narcotic agent; Z79.82 Long term (current) use of aspirin; Z79.899 Other long term (current) drug therapy; Z90.49 Acquired absence of other specified parts of digestive tract; Z98.51 Tubal ligation status
CPT/HCPCS: 36415; 71045; 80053; 80305; 80320; 81003; 83605; 83735; 83880; 84145; 84484; 85008; 85025; 85610; 85730; 87040; 93005; 96361; 96365; 96366; 99285; J3475; J7030

== ENCOUNTER 2024-08-13 17:44 | Inpatient (IN) | payer MEDICARE, OTHER ==
[~2024-08-13] VITALS: Ht 162.6 cm; Wt 72.5 kg
[~2024-08-13 17:44] MED LIST changes: +GABA-1405 PO; -GABA600T13 PO; +LISI5TAB22 PO; -OXYC5CAP19 PO; +OXYC5CAP22 PO; -PREG225C7 PO; +PREG225C8 PO
[2024-08-13] MEDS: normal saline 1000ML IV soln IVB ONE (18:33)
[2024-08-13] MEDS: CefTRIAXone 2gm/D5W 50ml BAG 50 ML IV ONE (18:44)
[2024-08-13 19:00] LABS: BASOPHILS % (AUTO) 0.1 % (0-1); EOSINOPHILS % (AUTO) 0 % (0-6); HEMATOCRIT 28.5 % (35.0-45.0); HEMOGLOBIN 9.2 g/dl (12.0-16.0); LYMPHOCYTES # (AUTO) 0.9 X10'3 (1.1-4.8); LYMPHOCYTES % (AUTO) 7.1 % (21-51); MEAN CORPUSCULAR HEMOGLOBIN 30.7 PG (27.0-31.0); MEAN CORPUSCULAR HGB CONC 32.3 g/dL (33.0-36.5); MEAN CORPUSCULAR VOLUME 94.9 FL (78-98); MEAN PLATELET VOLUME 11.9 FL (7.4-10.4); MONOCYTES # (AUTO) 0.8 X10'3 (0-0.9); MONOCYTES % (AUTO) 6.6 % (2-12); NEUTROPHILS # (AUTO) 10.3 X10'3 (1.8-7.7); NEUTROPHILS % (AUTO) 86.2 % (42-75); PLATELET COUNT 104 X10'3 (140-440); RED CELL DISTRIBUTION WIDTH 16.8 % (11.5-14.5)
[2024-08-13 19:08] LABS: ALBUMIN 3.4 G/DL (3.4-5.0); ANION GAP 12 (8-16); BLOOD UREA NITROGEN 45 MG/DL (7-18); BUN/CREATININE RATIO 24.5 (10.0-20.0); CALCIUM 8.4 MG/DL (8.5-10.1); CHLORIDE 99 MMOL/L (99-107); CREATININE 1.84 MG/DL (0.40-0.90); GLUCOSE 214 MG/DL (70-104); POTASSIUM 5.3 MMOL/L (3.5-5.1); PRO BRAIN NATRIURETIC PEPTIDE 1274 PG/ML (0-125); SODIUM 128 MMOL/L (135-145); TOTAL CARBON DIOXIDE 17.4 MMOL/L (24-32); eCRCL 25 ML/MIN; eGFR 27 ML/MIN
[2024-08-13 19:10] LABS: BILIRUBIN,URINE NEGATIVE (Neg); CLARITY,URINE CLEAR (Clear); COLOR,URINE YELLOW (Yellow); GLUCOSE, URINE NEGATIVE (Neg); KETONES,URINE NEGATIVE (Neg); LEUKOCYTE ESTERASE ,URINE NEGATIVE (Neg); NITRITES, URINE NEGATIVE (Neg); OCCULT BLOOD,URINE NEGATIVE (Neg); PH,URINE 5.5 (4.8-8.0); PROTEIN,URINE NEGATIVE (Neg); UROBILINOGEN,URINE 0.2 E.U/dL (0.2-1.0)
[2024-08-13 19:15] LABS: UA COLLECTION TYPE STRAIGHT CATH
[2024-08-13] MEDS ORDERED: magnesium sulf-water 2g/50mL 50 ML IV PRN (20:40)
[2024-08-13] MEDS ORDERED: magnesium sulf-water 4G/100mL 100 ML IV PRN (20:40)
[2024-08-13] MEDS ORDERED: potassium Cl 40MEQ/1/2NS 520ml 520 ML IV PRN (20:40)
[2024-08-13] MEDS ORDERED: magnesium hydroxide 30ml (MOM) UD suspension PO PRN (20:40)
[2024-08-13] MEDS ORDERED: magnesium Cl slow-release 64mg tablet PO PRN (20:40)
[2024-08-13] MEDS ORDERED: potassium Cl 20 mEq SR tablet PO PRN ×2 (20:40)
[2024-08-13] MEDS ORDERED: acetaminophen 325mg tablet PO PRN ×2 (20:40)
[2024-08-13] MEDS ORDERED: ondansetron/PF 4mg/2ml inj IV PRN (20:40)
[2024-08-13] MEDS ORDERED: albuterol 1.25 MG/3 ML (1/2 strength) nebule NEB PRN (20:40)
[2024-08-13] MEDS ORDERED: mag hydrox/Alum hydrox/simeth 30ml oral suspension PO PRN (20:40)
[2024-08-13 21:02] LABS: INR 1.1 INR; PROTHROMBIN TIME 11.9 SECONDS (9.0-12.0)
[2024-08-13 21:06] LABS: ALANINE AMINOTRANSFERASE 29 U/L (12-78); ALBUMIN/GLOBULIN RATIO 0.8 (1.1-1.5); ALKALINE PHOSPHATASE 142 IU/L (46-116); ASPARTATE AMINO TRANSFERASE 41 U/L (10-37); BILIRUBIN,DIRECT 0.2 MG/DL (0-0.3); BILIRUBIN,TOTAL 0.5 MG/DL (0.1-1.0); MAGNESIUM 1.8 MG/DL (1.5-2.4); TOTAL PROTEIN 7.5 G/DL (6.4-8.2)
[2024-08-13 21:40] VITALS: PULSE 71; RESP 18; O2SAT 95
[2024-08-13 21:43] LABS: HEMOGLOBIN A1C 6.2 % (4.5-6.2)
[2024-08-13] MEDS ORDERED: DEXTROSE 15 GM of carb/4 tabs (each vial/BOTTLE has 4 tablets) PO PRN ×2 (21:55)
[2024-08-13] MEDS ORDERED: dextrose 50%-water 50ml dispensing syringe IV PRN ×2 (21:55)
[2024-08-13] MEDS ORDERED: glucagon, human recombinant 1mg kit SUBCUT PRN (21:55)
[2024-08-13 22:08] LABS: OSMOLALITY 292.5 MOSM/K (280-300)
[2024-08-13 22:38] VITALS: PULSE 69; RESP 18; O2SAT 96
[2024-08-13] MEDS: ipratropium/albuterol 3ml nebule NEB SCH (22:38)
[2024-08-13 22:48] VITALS: PULSE 70; RESP 14
[2024-08-13] MEDS: normal saline 1000ml 1,000 ML IV SCH (22:53)
[2024-08-14] VITALS (14 sets, daily range): BP systolic 166; BP diastolic 71; PULSE 72–90; RESP 16–18; TEMP 98.1; O2SAT 94–98
[2024-08-14] MEDS ORDERED: ALLO300T8 PO (02:52)
[2024-08-14 03:34] LABS: BASOPHILS % (AUTO) 0.3 % (0-1); EOSINOPHILS % (AUTO) 0.1 % (0-6); HEMATOCRIT 26.4 % (35.0-45.0); HEMOGLOBIN 8.7 g/dl (12.0-16.0); LYMPHOCYTES # (AUTO) 1.5 X10'3 (1.1-4.8); LYMPHOCYTES % (AUTO) 13.3 % (21-51); MEAN CORPUSCULAR HEMOGLOBIN 30.9 PG (27.0-31.0); MEAN CORPUSCULAR HGB CONC 32.9 g/dL (33.0-36.5); MEAN PLATELET VOLUME 11.2 FL (7.4-10.4); MONOCYTES # (AUTO) 0.7 X10'3 (0-0.9); MONOCYTES % (AUTO) 5.9 % (2-12); NEUTROPHILS # (AUTO) 8.9 X10'3 (1.8-7.7); NEUTROPHILS % (AUTO) 80.4 % (42-75); PLATELET COUNT 85 X10'3 (140-440); RED BLOOD COUNT 2.81 X10'6 (4.20-5.60); RED CELL DISTRIBUTION WIDTH 17.1 % (11.5-14.5)
[2024-08-14 04:02] LABS: ALANINE AMINOTRANSFERASE 26 U/L (12-78); ALBUMIN/GLOBULIN RATIO 0.8 (1.1-1.5); ALKALINE PHOSPHATASE 122 IU/L (46-116); ANION GAP 10 (8-16); ASPARTATE AMINO TRANSFERASE 30 U/L (10-37); BILIRUBIN,TOTAL 0.3 MG/DL (0.1-1.0); BLOOD UREA NITROGEN 32 MG/DL (7-18); BUN/CREATININE RATIO 24.4 (10.0-20.0); CALCIUM 8.3 MG/DL (8.5-10.1); CHLORIDE 111 MMOL/L (99-107); CHOL/HDL RATIO 1.6 (0.00-4.99); CHOLESTEROL 112 MG/DL (0-200); CREATININE 1.31 MG/DL (0.40-0.90); GLUCOSE 156 MG/DL (70-104); HDL CHOLESTEROL 68 MG/DL (35-60); LDL CHOLESTEROL 42 MG/DL (50-100); MAGNESIUM 1.9 MG/DL (1.5-2.4); PHOSPHORUS 2.8 MG/DL (2.3-4.5); POTASSIUM 4.1 MMOL/L (3.5-5.1); SODIUM 140 MMOL/L (135-145); TOTAL CARBON DIOXIDE 19.3 MMOL/L (24-32); TOTAL PROTEIN 6.9 G/DL (6.4-8.2); TRIGLYCERIDES 44 MG/DL (20-135); eCRCL 35 ML/MIN; eGFR 40 ML/MIN
[2024-08-14] MEDS: INSULIN LISPRO 100 UNIT/ML INSULN.PEN MULTI-DOSE SQ SCH ×4 (07:00→17:30)
[2024-08-14] MEDS ORDERED: azithromycin/NS 500mg/250ml 250 ML IV SCH (08:00)
[2024-08-14] MEDS: K and/or MAG REPLACEMENT MC SCH (08:00)
[2024-08-14] MEDS: sodium chloride 0.45% 1,000 ML IV SCH (08:18)
[2024-08-14] MEDS: CefTRIAXone/D5W-Rocephin 1gm 50 ML IV SCH (08:21)
[2024-08-14] MEDS: docusate sod 100mg capsule PO SCH (08:22)
[2024-08-14] MEDS: heparin, porcine 5000 units/ml vial SQ SCH (08:22)
[2024-08-14] MEDS: azithromycin/NS 500mg/250ml 250 ML IV SCH (08:25)
[2024-08-14] MEDS: HYDROcodone/acetaminophen 10/325mg tab PO PRN (09:47)
[2024-08-14] MEDS ORDERED: non-formulary drug (Oxycodone HCl 2 CAP) PO SCH (16:00)
[2024-08-14] MEDS: pantoprazole 40mg Tablet.DR PO SCH (16:11)
[2024-08-14] MEDS: lisinopril 10 MG tablet PO SCH (16:11)
[2024-08-14] MEDS: atorvastatin 20mg tablet PO SCH (16:12)
[2024-08-14] MEDS: levetiracetam 250mg tablet PO SCH (19:51)
[2024-08-14] MEDS: allopurinol 300 MG tablet PO SCH (19:51)
[2024-08-14] MEDS: pregabalin 75mg capsule PO SCH (20:14)
[2024-08-14] MEDS: gabapentin 300mg capsule PO SCH (20:17)
[2024-08-14] MEDS: pioglitazone 45mg tablet PO SCH (20:26)
[2024-08-14] MEDS ORDERED: insulin glargine (Lantus) pen - multi-dose SQ SCH (21:00)
[2024-08-14] MEDS: METFORMIN HCL 500 MG PO SCH (21:00)
[2024-08-15] VITALS (16 sets, daily range): BP systolic 123–144; BP diastolic 45–59; PULSE 73–94; RESP 14–18; TEMP 97.4–98.7; O2SAT 93–99
[2024-08-15] MEDS: tizanidine 4mg tablet PO PRN (03:36)
[2024-08-15 07:00] LABS: ALANINE AMINOTRANSFERASE 22 U/L (12-78); ALBUMIN/GLOBULIN RATIO 0.8 (1.1-1.5); ALKALINE PHOSPHATASE 115 IU/L (46-116); ANION GAP 10 (8-16); ASPARTATE AMINO TRANSFERASE 20 U/L (10-37); BILIRUBIN,TOTAL 0.4 MG/DL (0.1-1.0); BLOOD UREA NITROGEN 16 MG/DL (7-18); BUN/CREATININE RATIO 15.8 (10.0-20.0); CALCIUM 8.4 MG/DL (8.5-10.1); CHLORIDE 109 MMOL/L (99-107); CREATININE 1.01 MG/DL (0.40-0.90); GLUCOSE 199 MG/DL (70-104); MAGNESIUM 1.7 MG/DL (1.5-2.4); PHOSPHORUS 2.7 MG/DL (2.3-4.5); POTASSIUM 3.9 MMOL/L (3.5-5.1); SODIUM 139 MMOL/L (135-145); TOTAL CARBON DIOXIDE 19.7 MMOL/L (24-32); TOTAL PROTEIN 6.7 G/DL (6.4-8.2); eCRCL 45 ML/MIN; eGFR 54 ML/MIN
[2024-08-15] MEDS: duloxetine 30mg CAPSULE.DR PO SCH (08:01)
[2024-08-15] MEDS: aspirin 81mg, enteric-coated 1 TAB TABLET.DR PO SCH (08:02)
[2024-08-15 08:37] LABS: BASOPHILS % (AUTO) 0.4 % (0-1); EOSINOPHILS # (AUTO) 0.1 X10'3 (0-0.9); EOSINOPHILS % (AUTO) 1.3 % (0-6); HEMOGLOBIN 7.8 g/dl (12.0-16.0); LYMPHOCYTES # (AUTO) 0.7 X10'3 (1.1-4.8); LYMPHOCYTES % (AUTO) 10.8 % (21-51); MEAN CORPUSCULAR HEMOGLOBIN 30.5 PG (27.0-31.0); MEAN CORPUSCULAR HGB CONC 32.6 g/dL (33.0-36.5); MEAN CORPUSCULAR VOLUME 93.5 FL (78-98); MEAN PLATELET VOLUME 12.5 FL (7.4-10.4); MONOCYTES # (AUTO) 0.5 X10'3 (0-0.9); MONOCYTES % (AUTO) 7.8 % (2-12); NEUTROPHILS # (AUTO) 4.9 X10'3 (1.8-7.7); NEUTROPHILS % (AUTO) 79.7 % (42-75); PLATELET COUNT 78 X10'3 (140-440); RED BLOOD COUNT 2.56 X10'6 (4.20-5.60); RED CELL DISTRIBUTION WIDTH 17.1 % (11.5-14.5); WHITE BLOOD COUNT 6.1 X10'3 (4.5-11.0)
[2024-08-15 09:18] LABS: PLATELET ESTIMATE DECREASED
[2024-08-15 09:19] LABS: ANISOCYTOSIS 1+; BURR CELLS FEW; ELLIPTOCYTES FEW; TEAR DROP CELLS FEW
[2024-08-15] MEDS: HYDROcodone/acetaminophen 5mg/325mg tablet PO PRN (20:09)
[2024-08-15] MEDS: gabapentin 300mg capsule PO SCH (20:10)
[2024-08-16] VITALS (9 sets, daily range): BP systolic 129–136; BP diastolic 51–55; PULSE 77–87; RESP 12–18; TEMP 97.4–98.3; O2SAT 95–97
[2024-08-16 06:15] LABS: HEMOGLOBIN 8.5 g/dl (12.0-16.0); LYMPHOCYTES # (AUTO) 0.7 X10'3 (1.1-4.8); MONOCYTES # (AUTO) 0.4 X10'3 (0-0.9); NEUTROPHILS # (AUTO) 3.6 X10'3 (1.8-7.7); WHITE BLOOD COUNT 5.1 X10'3 (4.5-11.0)
[2024-08-16 06:17] LABS: BASOPHILS % (AUTO) 0.4 % (0-1); EOSINOPHILS # (AUTO) 0.3 X10'3 (0-0.9); EOSINOPHILS % (AUTO) 6.8 % (0-6); HEMATOCRIT 25.5 % (35.0-45.0); LYMPHOCYTES % (AUTO) 14.7 % (21-51); MEAN CORPUSCULAR HEMOGLOBIN 31.2 PG (27.0-31.0); MEAN CORPUSCULAR HGB CONC 33.2 g/dL (33.0-36.5); MEAN CORPUSCULAR VOLUME 93.8 FL (78-98); MEAN PLATELET VOLUME 11.5 FL (7.4-10.4); NEUTROPHILS % (AUTO) 70.1 % (42-75); PLATELET COUNT 88 X10'3 (140-440); RED BLOOD COUNT 2.72 X10'6 (4.20-5.60); RED CELL DISTRIBUTION WIDTH 16.8 % (11.5-14.5)
[2024-08-16 06:23] LABS: ALANINE AMINOTRANSFERASE 19 U/L (12-78); ALBUMIN 3.1 G/DL (3.4-5.0); ALBUMIN/GLOBULIN RATIO 0.8 (1.1-1.5); ALKALINE PHOSPHATASE 119 IU/L (46-116); ANION GAP 8 (8-16); ASPARTATE AMINO TRANSFERASE 13 U/L (10-37); BILIRUBIN,TOTAL 0.4 MG/DL (0.1-1.0); BLOOD UREA NITROGEN 10 MG/DL (7-18); BUN/CREATININE RATIO 11.6 (10.0-20.0); CALCIUM 8.8 MG/DL (8.5-10.1); CHLORIDE 112 MMOL/L (99-107); CREATININE 0.86 MG/DL (0.40-0.90); GLUCOSE 169 MG/DL (70-104); MAGNESIUM 1.7 MG/DL (1.5-2.4); PHOSPHORUS 3.3 MG/DL (2.3-4.5); POTASSIUM 4.1 MMOL/L (3.5-5.1); SODIUM 143 MMOL/L (135-145); TOTAL CARBON DIOXIDE 22.6 MMOL/L (24-32); TOTAL PROTEIN 7.2 G/DL (6.4-8.2); eCRCL 53 ML/MIN; eGFR 65 ML/MIN
[2024-08-16] MEDS: allopurinol 300 MG tablet PO SCH (08:15)
[2024-08-16] MEDS ORDERED: TIZA2CAP7 PO (13:36)
[2024-08-16] MEDS ORDERED: OXYC5CAP22 PO (13:38)
[2024-08-16] MEDS ORDERED: AMOX-419 PO (13:42)
== END 2024-08-16 15:30 | disposition home or self-care (01) | DRG 682 ==
LOC: ER 17:44 → ED HOLD 20:47 → ORTHO 4S 08-14 21:59
PROVIDERS: ADMIT Internal Medicine Critical Care Medicine; ATTEND Internal Medicine
DX: N17.9 Acute kidney failure, unspecified (principal); G92.8 Other toxic encephalopathy; J15.9 Unspecified bacterial pneumonia; E87.1 Hypo-osmolality and hyponatremia; I50.9 Heart failure, unspecified; I11.0 Hypertensive heart disease with heart failure; J45.909 Unspecified asthma, uncomplicated; Z96.642 Presence of left artificial hip joint; K21.9 Gastro-esophageal reflux disease without esophagitis; G89.29 Other chronic pain; E87.5 Hyperkalemia; M10.9 Gout, unspecified; E11.42 Type 2 diabetes mellitus with diabetic polyneuropathy; E78.5 Hyperlipidemia, unspecified; F32.A Depression, unspecified; G40.909 Epilepsy, unspecified, not intractable, without status epilepticus; D64.9 Anemia, unspecified; T42.8X5A Adverse effect of antiparkinsonism drugs and other central muscle-tone depressants, initial encounter; T40.2X5A Adverse effect of other opioids, initial encounter; Z88.5 Allergy status to narcotic agent; Z79.899 Other long term (current) drug therapy; Z86.73 Personal history of transient ischemic attack (TIA), and cerebral infarction without residual deficits; Z79.84 Long term (current) use of oral hypoglycemic drugs; Z90.49 Acquired absence of other specified parts of digestive tract; Z82.49 Family history of ischemic heart disease and other diseases of the circulatory system; Z87.891 Personal history of nicotine dependence; Z79.82 Long term (current) use of aspirin; Z98.1 Arthrodesis status; Y92.89 Other specified places as the place of occurrence of the external cause
CPT/HCPCS: 36415; 70450; 71045; 71250; 74176; 80048; 80053; 80061; 80076; 81003; 82948; 83036; 83605; 83735; 83880; 83930; 84100; 84145; 84484; 85008; 85025; 85610; 87040; 87081; 93005; 94640; 94760; 97110; 97116; 97161; 99285; A6258; C1758; G0378; J0456; J0696; J1644; J1815; J3490; J7030

== ENCOUNTER 2024-11-05 15:01 | Inpatient (IN) | payer MEDICARE, OTHER ==
[~2024-11-05] VITALS: Ht 160 cm; Wt 100.0 kg
[~2024-11-05 15:01] MED LIST changes: -ALLO100T PO; +ALLO300T8 PO; -DOXY-224 PO; -FURO-150 PO; -HYDR-3964 PO; -LISI5TAB22 PO; -SERT-433 PO; -TIZA-205 PO; +TIZA2CAP7 PO
[2024-11-05] MEDS: metoclopramide 5 mg/ml inj IV ONE (15:22)
[2024-11-05] MEDS: normal saline 1000ml 1,000 ML IV ONE (15:22)
[2024-11-05] MEDS: diphenhydrAMINE 50 mg/ml inj IV ONE (15:22)
[2024-11-05 16:44] LABS: ALANINE AMINOTRANSFERASE 18 U/L (12-78); ALBUMIN 3.9 G/DL (3.4-5.0); ALKALINE PHOSPHATASE 122 IU/L (46-116); ANION GAP 17 (8-16); ASPARTATE AMINO TRANSFERASE 35 U/L (10-37); BILIRUBIN,TOTAL 0.7 MG/DL (0.1-1.0); BLOOD UREA NITROGEN 19 MG/DL (7-18); BUN/CREATININE RATIO 26.8 (10.0-20.0); CALCIUM 9.2 MG/DL (8.5-10.1); CHLORIDE 105 MMOL/L (99-107); CREATININE 0.71 MG/DL (0.40-0.90); GLUCOSE 175 MG/DL (70-104); LIPASE 32 U/L (16-77); POTASSIUM 4.1 MMOL/L (3.5-5.1); SODIUM 140 MMOL/L (135-145); TOTAL CARBON DIOXIDE 17.6 MMOL/L (24-32); TOTAL PROTEIN 7.7 G/DL (6.4-8.2); eCRCL 61 ML/MIN; eGFR 81 ML/MIN
[2024-11-05 17:44] LABS: BASOPHILS % (AUTO) 0.3 % (0-1); EOSINOPHILS # (AUTO) 0.1 X10'3 (0-0.9); EOSINOPHILS % (AUTO) 0.5 % (0-6); HEMATOCRIT 37.4 % (35.0-45.0); HEMOGLOBIN 12.1 g/dl (12.0-16.0); LYMPHOCYTES # (AUTO) 0.8 X10'3 (1.1-4.8); LYMPHOCYTES % (AUTO) 8.5 % (21-51); MEAN CORPUSCULAR HEMOGLOBIN 30.1 PG (27.0-31.0); MEAN CORPUSCULAR HGB CONC 32.3 g/dL (33.0-36.5); MEAN CORPUSCULAR VOLUME 93.1 FL (78-98); MONOCYTES # (AUTO) 0.5 X10'3 (0-0.9); MONOCYTES % (AUTO) 5.2 % (2-12); NEUTROPHILS # (AUTO) 8.1 X10'3 (1.8-7.7); NEUTROPHILS % (AUTO) 85.5 % (42-75); PLATELET COUNT 140 X10'3 (140-440); RED BLOOD COUNT 4.02 X10'6 (4.20-5.60); RED CELL DISTRIBUTION WIDTH 17.7 % (11.5-14.5); WHITE BLOOD COUNT 9.4 X10'3 (4.5-11.0)
[2024-11-05 18:14] LABS: ANISOCYTOSIS 1+; ELLIPTOCYTES FEW; POIKILOCYTOSIS FEW
[2024-11-05] MEDS: HYDROmorphone 1 mg/ml syringe IV ONE (18:18)
[2024-11-05] MEDS: LidoCAINE 2% Topical Jelly 11mL syringe (UROJET) TOP ONE (18:20)
[2024-11-05 19:04] LABS: BILIRUBIN,URINE NEGATIVE (Neg); CLARITY,URINE CLEAR (Clear); COLOR,URINE YELLOW (Yellow); GLUCOSE, URINE NEGATIVE (Neg); KETONES,URINE >=80 mg/dl (Neg); LEUKOCYTE ESTERASE ,URINE NEGATIVE (Neg); NITRITES, URINE NEGATIVE (Neg); OCCULT BLOOD,URINE SMALL (Neg); PROTEIN,URINE >=300 mg/dl (Neg); UROBILINOGEN,URINE 0.2 E.U/dL (0.2-1.0)
[2024-11-05] MEDS ORDERED: iohexol 300mg/ml 100ml inj. ONE (19:10)
[2024-11-05 19:11] LABS: UA COLLECTION TYPE FOLEY CATH
[2024-11-05 19:12] LABS: BACTERIA,URINE NONE SEEN /HPF (Neg); SQUAMOUS EPITHELIAL CELL,UR FEW /LPF (FEW); WBC,URINE 0-4 /HPF (0-4)
[2024-11-05] MEDS: morphine 4 MG/ML inj SYRINge IV ONE (21:46)
[2024-11-05] MEDS: piperacillin/tazo 3.375gm/50ml 50 ML IV ONE (21:47)
[2024-11-05] MEDS ORDERED: acetaminophen 325mg tablet PO PRN (22:15)
[2024-11-05] MEDS ORDERED: magnesium sulf-water 4G/100mL 100 ML IV PRN (22:15)
[2024-11-05] MEDS ORDERED: magnesium sulf-water 2g/50mL 50 ML IV PRN (22:15)
[2024-11-05] MEDS: ringers solution, lacted 1,000 ML IV SCH (23:38)
[2024-11-05] MEDS: labetalol 20mg/4ml (5mg/ml) syringe IV ONE (23:39)
[2024-11-06 01:54] LABS: BASOPHILS % (AUTO) 0.3 % (0-1); EOSINOPHILS % (AUTO) 0.1 % (0-6); HEMATOCRIT 34.8 % (35.0-45.0); HEMOGLOBIN 11.4 g/dl (12.0-16.0); LYMPHOCYTES # (AUTO) 0.6 X10'3 (1.1-4.8); LYMPHOCYTES % (AUTO) 8.6 % (21-51); MEAN CORPUSCULAR HEMOGLOBIN 30.2 PG (27.0-31.0); MEAN CORPUSCULAR HGB CONC 32.8 g/dL (33.0-36.5); MEAN CORPUSCULAR VOLUME 92.1 FL (78-98); MEAN PLATELET VOLUME 11.5 FL (7.4-10.4); MONOCYTES # (AUTO) 0.2 X10'3 (0-0.9); MONOCYTES % (AUTO) 2.4 % (2-12); NEUTROPHILS # (AUTO) 6.4 X10'3 (1.8-7.7); NEUTROPHILS % (AUTO) 88.6 % (42-75); PLATELET COUNT 165 X10'3 (140-440); RED BLOOD COUNT 3.78 X10'6 (4.20-5.60); RED CELL DISTRIBUTION WIDTH 17.6 % (11.5-14.5); WHITE BLOOD COUNT 7.2 X10'3 (4.5-11.0)
[2024-11-06 02:08] LABS: APTT 27 SECONDS (22-32); INR 1.1 INR; PROTHROMBIN TIME 11.8 SECONDS (9.0-12.0)
[2024-11-06 02:13] LABS: ALANINE AMINOTRANSFERASE 20 U/L (12-78); ALBUMIN 4.3 G/DL (3.4-5.0); ALBUMIN/GLOBULIN RATIO 1.1 (1.1-1.5); ALKALINE PHOSPHATASE 130 IU/L (46-116); ANION GAP 21 (8-16); ASPARTATE AMINO TRANSFERASE 26 U/L (10-37); BILIRUBIN,TOTAL 0.7 MG/DL (0.1-1.0); BLOOD UREA NITROGEN 15 MG/DL (7-18); BUN/CREATININE RATIO 17.9 (10.0-20.0); CALCIUM 9.4 MG/DL (8.5-10.1); CHLORIDE 99 MMOL/L (99-107); CREATININE 0.84 MG/DL (0.40-0.90); GLUCOSE 193 MG/DL (70-104); MAGNESIUM 1.2 MG/DL (1.5-2.4); PHOSPHORUS 4.3 MG/DL (2.3-4.5); SODIUM 139 MMOL/L (135-145); TOTAL CARBON DIOXIDE 18.9 MMOL/L (24-32); TOTAL PROTEIN 8.2 G/DL (6.4-8.2); eCRCL 52 ML/MIN; eGFR 67 ML/MIN
[2024-11-06 02:16] LABS: POTASSIUM 2.9 MMOL/L (3.5-5.1)
[2024-11-06] MEDS: morphine 2 MG/ML inj. syringe IV PRN ×2 (02:18→04:17)
[2024-11-06] MEDS: potassium Cl 20 mEq SR tablet PO PRN (02:58)
[2024-11-06] MEDS: potassium Cl 40MEQ/1/2NS 520ml 520 ML IV PRN (03:43)
[2024-11-06] MEDS: hydrALAZINE 20mg/ml inj. IV ONE (04:58)
[2024-11-06] MEDS: HYDROmorphone 1 mg/ml syringe IV ONE (05:43)
[2024-11-06] MEDS: piperacillin/tazo 3.375gm/50ml 50 ML IV SCH (06:51)
[2024-11-06 07:14] VITALS: BP 134/70; PULSE 90; RESP 16; TEMP 97.8; O2SAT 97
[2024-11-06] MEDS: K and/or MAG REPLACEMENT MC SCH (08:00)
[2024-11-06 08:03] LABS: ALBUMIN 3.9 G/DL (3.4-5.0); ANION GAP 22 (8-16); BLOOD UREA NITROGEN 17 MG/DL (7-18); BUN/CREATININE RATIO 17.7 (10.0-20.0); CHLORIDE 102 MMOL/L (99-107); CREATININE 0.96 MG/DL (0.40-0.90); GLUCOSE 172 MG/DL (70-104); SODIUM 140 MMOL/L (135-145); TOTAL CARBON DIOXIDE 15.8 MMOL/L (24-32); eCRCL 45 ML/MIN; eGFR 57 ML/MIN
[2024-11-06] MEDS: ondansetron/PF 4mg/2ml inj IV PRN (08:53)
[2024-11-06] MEDS: pregabalin 75mg capsule PO SCH (08:58)
[2024-11-06] MEDS: levetiracetam 250mg tablet PO SCH (09:00)
[2024-11-06] MEDS: duloxetine 30mg CAPSULE.DR PO SCH (09:01)
[2024-11-06] MEDS: gabapentin 300mg capsule PO SCH (09:02)
[2024-11-06] MEDS: tizanidine 4mg tablet PO SCH (09:13)
[2024-11-06] MEDS: atorvastatin 20mg tablet PO SCH (09:17)
[2024-11-06] MEDS: pantoprazole 40mg Tablet.DR PO SCH (09:17)
[2024-11-06] MEDS: pioglitazone 45mg tablet PO SCH (09:17)
[2024-11-06] MEDS: aspirin 81mg, enteric-coated 1 TAB TABLET.DR PO SCH (09:17)
[2024-11-06] MEDS: lisinopril 10 MG tablet PO SCH (09:18)
[2024-11-06] MEDS ORDERED: iohexol 350MG/ML 100ml bottle IV ONE (09:18)
[2024-11-06 10:00] VITALS: BP 169/63; PULSE 90; RESP 18; TEMP 98.4; O2SAT 99
[2024-11-06] MEDS: metoclopramide 5 mg/ml inj IV PRN (10:58)
[2024-11-06 18:00] VITALS: BP 158/66; PULSE 80; RESP 16; TEMP 97.8; O2SAT 97
[2024-11-06 18:30] LABS: URINE AMPHETAMINE SCREEN NEGATIVE (Neg); URINE BARBITUATE SCREEN NEGATIVE (Neg); URINE BENZODIAZEPINES SCREEN NEGATIVE (Neg); URINE CANNABINOID SCREEN POSITIVE (Neg); URINE COCAINE SCREEN NEGATIVE (Neg); URINE METHADONE SCREEN NEGATIVE (Neg); URINE OPIATE SCREEN POSITIVE (Neg); URINE PHENCYCLIDINE SCREEN NEGATIVE (Neg)
[2024-11-06] MEDS: magnesium Cl slow-release 64mg tablet PO PRN (20:59)
[2024-11-06] MEDS: METFORMIN HCL 500 MG PO SCH (21:00)
[2024-11-06] MEDS: normal saline 1000ml 1,000 ML IV SCH (21:00)
[2024-11-06] MEDS: enoxaparin 40mg/0.4ml syringe SQ SCH (21:09)
[2024-11-06 22:00] VITALS: BP 169/66; PULSE 72; RESP 16; TEMP 98; O2SAT 94
[2024-11-07 06:19] VITALS: BP 169/66; PULSE 72; RESP 16; TEMP 98; O2SAT 94
[2024-11-07 06:36] LABS: BASOPHILS % (AUTO) 0.3 % (0-1); EOSINOPHILS # (AUTO) 0.1 X10'3 (0-0.9); HEMATOCRIT 28.1 % (35.0-45.0); HEMOGLOBIN 9.1 g/dl (12.0-16.0); LYMPHOCYTES # (AUTO) 1.3 X10'3 (1.1-4.8); LYMPHOCYTES % (AUTO) 26.6 % (21-51); MEAN CORPUSCULAR HEMOGLOBIN 29.9 PG (27.0-31.0); MEAN CORPUSCULAR HGB CONC 32.5 g/dL (33.0-36.5); MEAN CORPUSCULAR VOLUME 92.1 FL (78-98); MEAN PLATELET VOLUME 10.7 FL (7.4-10.4); MONOCYTES # (AUTO) 0.6 X10'3 (0-0.9); MONOCYTES % (AUTO) 11.2 % (2-12); NEUTROPHILS % (AUTO) 59.9 % (42-75); PLATELET COUNT 128 X10'3 (140-440); RED BLOOD COUNT 3.05 X10'6 (4.20-5.60); RED CELL DISTRIBUTION WIDTH 17.7 % (11.5-14.5)
[2024-11-07 06:47] LABS: APTT 29 SECONDS (22-32); INR 1.1 INR; PROTHROMBIN TIME 11.8 SECONDS (9.0-12.0)
[2024-11-07 06:53] LABS: ALANINE AMINOTRANSFERASE 16 U/L (12-78); ALBUMIN 3.2 G/DL (3.4-5.0); ALKALINE PHOSPHATASE 88 IU/L (46-116); ANION GAP 10 (8-16); ASPARTATE AMINO TRANSFERASE 12 U/L (10-37); BILIRUBIN,TOTAL 0.4 MG/DL (0.1-1.0); BLOOD UREA NITROGEN 15 MG/DL (7-18); CALCIUM 8.4 MG/DL (8.5-10.1); CHLORIDE 110 MMOL/L (99-107); CHOL/HDL RATIO 2.1 (0.00-4.99); CHOLESTEROL 141 MG/DL (0-200); GLUCOSE 109 MG/DL (70-104); HDL CHOLESTEROL 67 MG/DL (35-60); LDL CHOLESTEROL 48 MG/DL (50-100); MAGNESIUM 1.3 MG/DL (1.5-2.4); PHOSPHORUS 3.4 MG/DL (2.3-4.5); POTASSIUM 3.5 MMOL/L (3.5-5.1); SODIUM 145 MMOL/L (135-145); TOTAL CARBON DIOXIDE 24.7 MMOL/L (24-32); TOTAL PROTEIN 6.3 G/DL (6.4-8.2); TRIGLYCERIDES 111 MG/DL (20-135); eCRCL 43 ML/MIN; eGFR 55 ML/MIN
[2024-11-07 06:54] LABS: HEMOGLOBIN A1C 5.8 % (4.5-6.2)
[2024-11-07 07:35] LABS: ANISOCYTOSIS 1+; LARGE PLATELETS FEW; PLATELET ESTIMATE DECREASED
[2024-11-07] MEDS: gabapentin 300mg capsule PO SCH (07:47)
[2024-11-07 08:00] VITALS: RESP 16; O2SAT 96
[2024-11-07] MEDS: HYDROmorphone inj. 0.5 MG/0.5 ML DISP.SYRIN IV PRN (10:42)
[2024-11-07 14:15] LABS: BASOPHILS % (AUTO) 0.3 % (0-1); EOSINOPHILS # (AUTO) 0.1 X10'3 (0-0.9); EOSINOPHILS % (AUTO) 2.3 % (0-6); HEMATOCRIT 30.2 % (35.0-45.0); HEMOGLOBIN 9.9 g/dl (12.0-16.0); LYMPHOCYTES % (AUTO) 15.8 % (21-51); MEAN CORPUSCULAR HEMOGLOBIN 30.3 PG (27.0-31.0); MEAN CORPUSCULAR HGB CONC 32.8 g/dL (33.0-36.5); MEAN CORPUSCULAR VOLUME 92.3 FL (78-98); MONOCYTES # (AUTO) 0.7 X10'3 (0-0.9); NEUTROPHILS # (AUTO) 4.6 X10'3 (1.8-7.7); NEUTROPHILS % (AUTO) 70.6 % (42-75); PLATELET COUNT 125 X10'3 (140-440); RED BLOOD COUNT 3.27 X10'6 (4.20-5.60); RED CELL DISTRIBUTION WIDTH 18.1 % (11.5-14.5); WHITE BLOOD COUNT 6.6 X10'3 (4.5-11.0)
[2024-11-07 15:07] LABS: ANISOCYTOSIS 2+; LARGE PLATELETS FEW; PLATELET ESTIMATE DECREASED
[2024-11-07] MEDS: metoprolol tartrate 1mg/ml inj IV SCH (17:04)
[2024-11-07 17:45] VITALS: BP 161/71; PULSE 72; O2SAT 95
[2024-11-07 18:00] VITALS: BP 122/81; PULSE 73; RESP 16; TEMP 98; O2SAT 96
[2024-11-07] MEDS: amLODIPine 5mg tablet PO SCH (19:55)
[2024-11-07 20:00] VITALS: RESP 18; O2SAT 95
[2024-11-07 22:00] VITALS: BP 133/67; PULSE 65; RESP 18; TEMP 97.3; O2SAT 94
[2024-11-08] MEDS: HYDROcodone/acetaminophen 5mg/325mg tablet PO PRN (03:47)
[2024-11-08 06:34] LABS: BASOPHILS % (AUTO) 0.6 % (0-1); EOSINOPHILS # (AUTO) 0.2 X10'3 (0-0.9); EOSINOPHILS % (AUTO) 4.6 % (0-6); HEMOGLOBIN 8.9 g/dl (12.0-16.0); LYMPHOCYTES # (AUTO) 1.1 X10'3 (1.1-4.8); MEAN CORPUSCULAR HEMOGLOBIN 30.4 PG (27.0-31.0); MEAN CORPUSCULAR HGB CONC 33.1 g/dL (33.0-36.5); MEAN CORPUSCULAR VOLUME 91.7 FL (78-98); MEAN PLATELET VOLUME 10.4 FL (7.4-10.4); MONOCYTES # (AUTO) 0.6 X10'3 (0-0.9); MONOCYTES % (AUTO) 12.7 % (2-12); NEUTROPHILS # (AUTO) 2.7 X10'3 (1.8-7.7); NEUTROPHILS % (AUTO) 58.1 % (42-75); PLATELET COUNT 106 X10'3 (140-440); RED BLOOD COUNT 2.95 X10'6 (4.20-5.60); RED CELL DISTRIBUTION WIDTH 17.6 % (11.5-14.5); WHITE BLOOD COUNT 4.6 X10'3 (4.5-11.0)
[2024-11-08 07:02] LABS: ALANINE AMINOTRANSFERASE 21 U/L (12-78); ALBUMIN 3.2 G/DL (3.4-5.0); ALBUMIN/GLOBULIN RATIO 1.1 (1.1-1.5); ALKALINE PHOSPHATASE 83 IU/L (46-116); ANION GAP 8 (8-16); ASPARTATE AMINO TRANSFERASE 18 U/L (10-37); BILIRUBIN,TOTAL 0.5 MG/DL (0.1-1.0); BLOOD UREA NITROGEN 12 MG/DL (7-18); BUN/CREATININE RATIO 13.8 (10.0-20.0); CALCIUM 8.2 MG/DL (8.5-10.1); CHLORIDE 112 MMOL/L (99-107); CREATININE 0.87 MG/DL (0.40-0.90); GLUCOSE 126 MG/DL (70-104); MAGNESIUM 1.3 MG/DL (1.5-2.4); PHOSPHORUS 3.1 MG/DL (2.3-4.5); POTASSIUM 3.2 MMOL/L (3.5-5.1); SODIUM 145 MMOL/L (135-145); TOTAL CARBON DIOXIDE 24.8 MMOL/L (24-32); TOTAL PROTEIN 6.1 G/DL (6.4-8.2); eCRCL 50 ML/MIN; eGFR 64 ML/MIN
[2024-11-08 07:03] LABS: APTT 29 SECONDS (22-32); INR 1.1 INR; PROTHROMBIN TIME 11.8 SECONDS (9.0-12.0)
[2024-11-08] MEDS: potassium Cl 20 mEq SR tablet PO PRN (07:53)
[2024-11-08 08:24] VITALS: RESP 16; O2SAT 96
[2024-11-08] MEDS: pantoprazole 40 MG vial IV SCH (12:28)
[2024-11-08 13:22] VITALS: RESP 16; O2SAT 98
[2024-11-08 18:00] VITALS: BP 187/87; PULSE 65; RESP 16; TEMP 97.1; O2SAT 93
[2024-11-08] MEDS: hyDRALAzine 10mg tablet PO PRN (18:19)
[2024-11-08 20:00] VITALS: RESP 16; O2SAT 93
[2024-11-08] MEDS: sodium ferric gluc complex inj 125 MG in normal saline 100ml IV soln 100 ML IV SCH (21:19)
[2024-11-08 22:00] VITALS: BP 139/62; PULSE 65; RESP 16; TEMP 97.8; O2SAT 96
[2024-11-09] VITALS (19 sets, daily range): BP systolic 114–190; BP diastolic 53–82; PULSE 46–66; RESP 11–20; TEMP 97–98.6; O2SAT 90–98
[2024-11-09 06:40] LABS: EOSINOPHILS # (AUTO) 0.2 X10'3 (0-0.9); HEMATOCRIT 25.8 % (35.0-45.0); HEMOGLOBIN 8.6 g/dl (12.0-16.0); LYMPHOCYTES # (AUTO) 0.7 X10'3 (1.1-4.8); MONOCYTES # (AUTO) 0.6 X10'3 (0-0.9); NEUTROPHILS # (AUTO) 3.3 X10'3 (1.8-7.7)
[2024-11-09 06:43] LABS: BASOPHILS % (AUTO) 0.2 % (0-1); EOSINOPHILS % (AUTO) 4.7 % (0-6); LYMPHOCYTES % (AUTO) 14.9 % (21-51); MEAN CORPUSCULAR HEMOGLOBIN 30.7 PG (27.0-31.0); MEAN CORPUSCULAR HGB CONC 33.3 g/dL (33.0-36.5); MEAN CORPUSCULAR VOLUME 92.2 FL (78-98); MEAN PLATELET VOLUME 10.8 FL (7.4-10.4); MONOCYTES % (AUTO) 12.4 % (2-12); NEUTROPHILS % (AUTO) 67.8 % (42-75); PLATELET COUNT 100 X10'3 (140-440); RED CELL DISTRIBUTION WIDTH 17.5 % (11.5-14.5); WHITE BLOOD COUNT 4.8 X10'3 (4.5-11.0)
[2024-11-09 06:51] LABS: INR 1.2 INR; PROTHROMBIN TIME 12.4 SECONDS (9.0-12.0)
[2024-11-09 07:01] LABS: ALANINE AMINOTRANSFERASE 23 U/L (12-78); ALBUMIN 2.8 G/DL (3.4-5.0); ALBUMIN/GLOBULIN RATIO 0.9 (1.1-1.5); ALKALINE PHOSPHATASE 82 IU/L (46-116); ANION GAP 10 (8-16); ASPARTATE AMINO TRANSFERASE 24 U/L (10-37); BILIRUBIN,TOTAL 0.4 MG/DL (0.1-1.0); BLOOD UREA NITROGEN 8 MG/DL (7-18); BUN/CREATININE RATIO 9.5 (10.0-20.0); CHLORIDE 113 MMOL/L (99-107); CREATININE 0.84 MG/DL (0.40-0.90); GLUCOSE 166 MG/DL (70-104); MAGNESIUM 1.1 MG/DL (1.5-2.4); POTASSIUM 3.7 MMOL/L (3.5-5.1); SODIUM 144 MMOL/L (135-145); TOTAL CARBON DIOXIDE 21.2 MMOL/L (24-32); TOTAL PROTEIN 5.9 G/DL (6.4-8.2); eCRCL 52 ML/MIN; eGFR 67 ML/MIN
[2024-11-09] MEDS: lisinopril 10 MG tablet PO SCH (08:00)
[2024-11-09] MEDS: amLODIPine 5mg tablet PO SCH (09:22)
[2024-11-09] MEDS ORDERED: LIDOcaine 2% Viscous 15ml cup ONE (14:37)
[2024-11-09] MEDS ORDERED: fentaNYL/PF 50MCG/1 ML 2ML syringe ONE (14:48)
[2024-11-09] MEDS ORDERED: MIDAZolam 1 MG/ML 5ML VIAL ONE (14:48)
[2024-11-09] MEDS ORDERED: simethicone 40mg/0.6ml oral drops 30ml ONE (14:55)
[2024-11-09] MEDS ORDERED: hydrALAZINE 20mg/ml inj. IV PRN (17:30)
[2024-11-09] MEDS: hydrALAZINE 20mg/ml inj. IV ONE (18:03)
[2024-11-09] MEDS ORDERED: magnesium Cl slow-release 64mg tablet PO PRN (18:15)
[2024-11-09] MEDS ORDERED: magnesium sulf-water 2g/50mL 50 ML IV PRN (18:15)
[2024-11-09] MEDS ORDERED: potassium Cl 40MEQ/1/2NS 520ml 520 ML IV PRN (18:15)
[2024-11-09] MEDS ORDERED: potassium Cl 20 mEq SR tablet PO PRN (18:15)
[2024-11-09] MEDS: K and/or MAG REPLACEMENT MC SCH (20:00)
[2024-11-09] MEDS: docusate sod 100mg capsule PO SCH (21:35)
[2024-11-09] MEDS: polyethylene glycol 3350 17gm powd pack PO SCH (21:37)
[2024-11-09] MEDS: magnesium sulf-water 4G/100mL 100 ML IV PRN (21:42)
[2024-11-10 06:00] VITALS: BP 131/62; PULSE 63; RESP 16; TEMP 98.7; O2SAT 96
[2024-11-10 06:50] LABS: INR 1.1 INR; PROTHROMBIN TIME 11.5 SECONDS (9.0-12.0)
[2024-11-10 06:57] LABS: ALANINE AMINOTRANSFERASE 20 U/L (12-78); ALKALINE PHOSPHATASE 83 IU/L (46-116); ANION GAP 8 (8-16); ASPARTATE AMINO TRANSFERASE 16 U/L (10-37); BILIRUBIN,TOTAL 0.5 MG/DL (0.1-1.0); BLOOD UREA NITROGEN 7 MG/DL (7-18); BUN/CREATININE RATIO 11.3 (10.0-20.0); CALCIUM 8.2 MG/DL (8.5-10.1); CHLORIDE 110 MMOL/L (99-107); CREATININE 0.62 MG/DL (0.40-0.90); GLUCOSE 132 MG/DL (70-104); MAGNESIUM 2.4 MG/DL (1.5-2.4); PHOSPHORUS 3.4 MG/DL (2.3-4.5); POTASSIUM 3.2 MMOL/L (3.5-5.1); SODIUM 143 MMOL/L (135-145); TOTAL CARBON DIOXIDE 24.6 MMOL/L (24-32); eCRCL 70 ML/MIN; eGFR > 90 ML/MIN
[2024-11-10] MEDS: potassium Cl 20 mEq SR tablet PO PRN (07:57)
[2024-11-10 09:14] LABS: EOSINOPHILS # (AUTO) 0.3 X10'3 (0-0.9); LYMPHOCYTES # (AUTO) 0.7 X10'3 (1.1-4.8); LYMPHOCYTES % (AUTO) 14.9 % (21-51); MONOCYTES # (AUTO) 0.6 X10'3 (0-0.9); NEUTROPHILS # (AUTO) 3.3 X10'3 (1.8-7.7)
[2024-11-10 09:16] LABS: BASOPHILS % (AUTO) 0.5 % (0-1); EOSINOPHILS % (AUTO) 6.1 % (0-6); HEMATOCRIT 29.1 % (35.0-45.0); HEMOGLOBIN 9.7 g/dl (12.0-16.0); MEAN CORPUSCULAR HEMOGLOBIN 30.7 PG (27.0-31.0); MEAN CORPUSCULAR HGB CONC 33.5 g/dL (33.0-36.5); MEAN CORPUSCULAR VOLUME 91.5 FL (78-98); MEAN PLATELET VOLUME 11.2 FL (7.4-10.4); NEUTROPHILS % (AUTO) 66.5 % (42-75); PLATELET COUNT 115 X10'3 (140-440); RED BLOOD COUNT 3.18 X10'6 (4.20-5.60); RED CELL DISTRIBUTION WIDTH 17.6 % (11.5-14.5)
[2024-11-10 10:00] VITALS: BP 160/64; PULSE 53; RESP 18; TEMP 97; O2SAT 96
[2024-11-10] MEDS ORDERED: LISI20TA28 PO (12:20)
[2024-11-10] MEDS ORDERED: CEFD300C3 PO (12:20)
[2024-11-10] MEDS ORDERED: LACT1CAP26 PO (12:20)
[2024-11-10] MEDS ORDERED: METR-159 PO (12:20)
[2024-11-10] MEDS ORDERED: PANT40TA54 PO (12:20)
[2024-11-10] MEDS ORDERED: AMLO10TA14 PO (12:20)
[2024-11-10] MEDS ORDERED: POLY17PO10 PO (12:20)
[2024-11-10] MEDS ORDERED: DOCU100C40 PO (12:20)
[2024-11-10] MEDS ORDERED: OXYC-658 PO (14:06)
== END 2024-11-10 14:00 | disposition home health service (06) | DRG 377 ==
LOC: ER 15:03 → ED HOLD 22:21 → ORTHO 4S 11-06 07:07
PROVIDERS: ADMIT Internal Medicine Critical Care Medicine; ATTEND Family Medicine
PROC: BW211ZZ Computerized Tomography (CT Scan) of Abdomen and Pelvis using Low Osmolar Contrast (ICD-10-PCS; 2024-11-05)
PROC: B4201ZZ Computerized Tomography (CT Scan) of Abdominal Aorta using Low Osmolar Contrast (ICD-10-PCS; 2024-11-06)
PROC: B4241ZZ Computerized Tomography (CT Scan) of Superior Mesenteric Artery using Low Osmolar Contrast (ICD-10-PCS; 2024-11-06)
PROC: B4281ZZ Computerized Tomography (CT Scan) of Bilateral Renal Arteries using Low Osmolar Contrast (ICD-10-PCS; 2024-11-06)
PROC: B42C1ZZ Computerized Tomography (CT Scan) of Pelvic Arteries using Low Osmolar Contrast (ICD-10-PCS; 2024-11-06)
PROC: B42H1ZZ Computerized Tomography (CT Scan) of Bilateral Lower Extremity Arteries using Low Osmolar Contrast (ICD-10-PCS; 2024-11-06)
PROC: B4211ZZ Computerized Tomography (CT Scan) of Celiac Artery using Low Osmolar Contrast (ICD-10-PCS; 2024-11-06)
PROC: 0DB68ZX Excision of Stomach, Via Natural or Artificial Opening Endoscopic, Diagnostic (ICD-10-PCS; principal; 2024-11-09)
DX: K55.21 Angiodysplasia of colon with hemorrhage (principal); N17.0 Acute kidney failure with tubular necrosis; A04.8 Other specified bacterial intestinal infections; E87.20 Acidosis, unspecified; K29.71 Gastritis, unspecified, with bleeding; E87.6 Hypokalemia; I16.0 Hypertensive urgency; L90.5 Scar conditions and fibrosis of skin; I11.0 Hypertensive heart disease with heart failure; I50.9 Heart failure, unspecified; J45.909 Unspecified asthma, uncomplicated; D64.9 Anemia, unspecified; B19.20 Unspecified viral hepatitis C without hepatic coma; G89.29 Other chronic pain; K21.9 Gastro-esophageal reflux disease without esophagitis; E78.5 Hyperlipidemia, unspecified; E11.40 Type 2 diabetes mellitus with diabetic neuropathy, unspecified; Z90.49 Acquired absence of other specified parts of digestive tract; Z88.8 Allergy status to other drugs, medicaments and biological substances; Z87.891 Personal history of nicotine dependence; Z82.49 Family history of ischemic heart disease and other diseases of the circulatory system
CPT/HCPCS: 36415; 43239; 71045; 74174; 74177; 80048; 80053; 80061; 80305; 81001; 83036; 83605; 83690; 83735; 84100; 84145; 85008; 85025; 85610; 85730; 87040; 87081; 93005; 97161; 97530; 99152; 99285; A4314; A4620; A6213; A6449; G0378; J0360; J1171; J1200; J1650; J2250; J2270; J2405; J2470; J2543; J2765; J2916; J3010; J3475; J3480; J3490; J7030; J7120; Q9967